=== PATIENT | female | born 1960 | race Two or more races ===

== ENCOUNTER 2021-02-22 14:32 | Emergency (ER) | payer MEDICARE, MEDICAID, SELFPAY ==
[2021-02-22 14:44] VITALS: BP 110/75; PULSE 77; RESP 16; TEMP 36.7; O2SAT 98; BMI 22.3
--- NOTE | 2021-02-22 15:30 | ED.ALLEREA ---
HPI - Allergic Reaction General Chief complaint: Allergic Reaction Stated complaint: EYES SWELLING Time Seen by Provider: 02/22/21 15:01 Source: patient Mode of arrival: ambulatory History of Present Illness HPI narrative: 60-year-old female with a past medical history of arthritis, diabetes, eczema, hypercholesterolemia, hypertension, sinusitis, presenting to the ED complaining of acute on chronic facial rash worsening over the past few days. Admits recently saw night warehouse manager & was prescribed Hydrocortisone cream & Flagyl topical cream which worsened rash, medications were discontinued by Dermatology and patient was instructed to use Vaseline only, however symptoms persisted/continued to worsen. Reports skin burning with mild pruritus/swelling extending to eyelids. Denies visual change/loss, blurry/double vision, fever/chills, tick/insect bites, new exposures/travel MD complaint: facial swelling Related Data Previous Rx's Medication Instructions Recorded cetirizine [Zyrtec] 10 mg PO DAILY PRN #14 cap 02/22/21 diphenhydramine HCl [Benadryl] 25 mg PO Q6H PRN #14 cap 02/22/21 prednisone 40 mg PO DAILY 5 Days #10 tab 02/22/21 Allergies Allergy/AdvReac Type Severity Reaction Status Date / Time latex [Latex] Allergy Mild RASH Verified 02/22/21 14:54 Review of Systems Review of Systems: Constitutional: No Fever, No Chills ENT/Mouth: No Ear Pain, No sore throat, No Rhinorrhea, No Swallowing Difficulty Eyes: +eyelid swelling, No Redness, No Vision Changes Cardiovascular: No Chest Pain, No SOB Respiratory: No Cough, No Dyspnea Musculoskeletal: No joint pain, No Myalgias, No Joint Swelling Skin: No Skin Lesions, + rash Neuro: No Weakness, + Headache Yes all other systems are reviewed and are negative [facility] Past Medical History Attestation statement: The following information was validated with the patient. Medical History (Updated 02/22/21 @ 15:30 by ABRIL Donovan) Arthritis Diabetes Eczema Hypercholesteremia Hypertension Sinusitis Social History Social History Advance Directives: No Advance Directives Information Provided: No Patient : No Physical Exam Vital Signs: Vital Signs: Last Vital Signs Temp 98.1 F 02/22/21 14:44 Pulse 77 02/22/21 14:44 Resp 16 02/22/21 14:44 BP 110/75 02/22/21 14:44 Pulse Ox 98 02/22/21 14:44 Body Mass Index 22.3 Const: General: cooperative, healthy appearing and no acute distress Orientation/consciousness: patient oriented x3 Limitations: no limitations HENMT: Head: Yes normal to inspection and Yes atraumatic Ears: hearing grossly normal bilaterally General nose exam: Normal external nose present Mouth: Normal oral and palatal mucosa present and no muffled voice Throat: Yes posterior oropharynx normal, Yes tonsils normal, Yes uvula midline, No peritonsillar mass, No uvula laterally displaced and No uvular edema Eyes: General: appearance normal, both eyes and all related structures EOM: EOMs intact bilaterally Neck: Neck: Yes normal visual inspection, Yes no lymphadenopathy, Yes no meningeal signs, Yes trachea midline and Yes supple Resp: Effort & Inspection: normal respiratory effort, not labored, no nasal flaring and no stridor Cardio: Rate: regular rate Heart sounds: S1 normal heart sound present and S2 normal heart sound present GI: Inspection: Yes normal to inspection Skin: Other: Rash noted to face bilateral periorbital, nose, bilateral cheeks and upper lip. No intra-articular involvement she Rashes: rashes noted face borders raised, color and surface erythematous, smooth and waxy; not warm; fluctuant not assessed Wounds: no wounds Neuro: General: patient oriented x3 and no meningeal signs Gait exam (Neuro): Normal gait present Extrem: General: Yes normal to inspection MDM - Allergic Reaction MDM Narrative Medical decision making narrative: 60-year-old female with a past medical history of arthritis, diabetes, eczema, hypercholesterolemia, HTN, sinusitis, presenting to the ED c/o acute on chronic facial rash worsening over the past few days. On exam vital signs stable, NAD, well-appearing, physical exam as above. Erythematous raised shiny/waxy rash noted to face. Not warm or tender to palpation. Concern for contact dermatitis versus allergic reaction. Low concern for cellulitis. No appreciable intra-articular involvement. Plan: P.O. steroids Discharge Plan Discharge Clinical Impression: Contact dermatitis Qualifiers: Contact dermatitis type: unspecified Contact dermatitis trigger: unspecified trigger Qualified Code(s): L25.9 - Unspecified contact dermatitis, unspecified cause Patient Disposition: Home, Self-Care Instructions: Contact Dermatitis (ED) Additional Instructions: Continue using Vaseline at home. In addition prednisone as an oral steroid, take as prescribed. Take Zyrtec during the day as it will not make you drowsy, and Benadryl at night as it will make you drowsy. Follow-up with her night warehouse manager. If her symptoms persist or worsen, you have fever, or chills return to the ED Contin?e usando vaselina en casa. Adem?s, la prednisona alysa esteroide oral, t?andrea seg?n lo prescrito. Selman Zyrtec jayant el d?a, ya que no le sarthak? mary ann?o, y Benadryl por la noche, ya que le sarthak? mary ann?o. Seguimiento con mccall dermat?logo. Si marisol s?ntomas persisten o empeoran, tiene fiebre o los escalofr?os regresan al servicio de urgencias Prescriptions: New prednisone 20 mg tablet 40 mg PO DAILY 5 Days Qty: 10 RF: 0 Zyrtec 10 mg capsule 10 mg PO DAILY PRN (Reason: allergy symptoms) Qty: 14 RF: 0 diphenhydramine HCl [Benadryl] 25 mg capsule 25 mg PO Q6H PRN (Reason: allergy symptoms) Qty: 14 RF: 0 Referrals: Tonia Bailey MD [Primary Care Provider] - 2 days Print Language: Kiswahili
[2021-02-22] MEDS: predniSONE 20 MG TABLET 40 MG PO (15:33)
[2021-02-22] MEDS: Famotidine 20 MG TABLET PO (15:33)
[2021-02-22] MEDS: Loratadine 10 MG TABLET PO (15:33)
== END 2021-02-22 15:51 | disposition home or self-care (01) ==
PROVIDERS: Emergency Provider Emergency Medicine Emergency Medical Services; PCP Family Medicine
DX: L25.9 Unspecified contact dermatitis, unspecified cause (principal); R22.0 Localized swelling, mass and lump, head; E11.9 Type 2 diabetes mellitus without complications; I10 Essential (primary) hypertension; E78.00 Pure hypercholesterolemia, unspecified
CPT/HCPCS: 99283; 99284

== ENCOUNTER → 2021-02-25 09:05 | Outpatient (BNVA) | payer MEDICARE, MEDICAID, SELFPAY | PROVIDERS: Visit Provider Advanced Practice Midwife | DX: N95.0 Postmenopausal bleeding (principal); N81.4 Uterovaginal prolapse, unspecified | CPT/HCPCS: 99212 ==

== ENCOUNTER 2021-03-08 06:14 | Emergency (ER) | payer MEDICARE, MEDICAID, SELFPAY ==
[2021-03-08 06:58] VITALS: BP 123/81; PULSE 82; RESP 24; TEMP 37.1; O2SAT 98; BMI 26.6
[2021-03-08 08:00] VITALS: BP 127/79; PULSE 76; RESP 16; O2SAT 99
--- NOTE | 2021-03-08 08:04 | ED.ALLEREA ---
HPI - Allergic Reaction General Chief complaint: Allergic Reaction Stated complaint: Allergic reaction Time Seen by Provider: 03/08/21 08:00 Source: patient, family and EMS Mode of arrival: EMS Limitations: language barrier History of Present Illness HPI narrative: 60 y/o female with history of asthma, diabetes, HTN, recurrent facial rash who presents to the ER with acute onset of burning and itching facial rash that started last night. She reports redness and swelling of her face, eyes, and extending down to her neck. She reports it is painful. She had a similar rash a few weeks ago (seen here on 02/22) and prescribed prednisone with resolution. It was not as severe at that time. She reports dealing with this every year, multiple times per year and it is getting worse in intensity. Documentation from that visit report the rash is acute on chronic and she was seeing a Dermatolgist for this. She denies any tongue to throat swelling. No shortness of breath, wheezing or difficulty breathing. She denies any lotions, creams or sunscreen use. Has only been using Vasoline as recommended by her Chemical Dependency Professional. Next appointment with them is in 2 weeks. MD complaint: allergic reaction, hives and facial swelling Onset (ago): hour(s) (12) Exposure: unknown Symptoms: rash, itching and facial swelling Severity: moderate Treatment prior to arrival: none Previous Allergic Reaction History: prior ED visit(s) Related Data Previous Rx's Medication Instructions Recorded cetirizine [Zyrtec] 10 mg PO DAILY PRN #14 cap 02/22/21 diphenhydramine HCl [Benadryl] 25 mg PO Q6H PRN #14 cap 02/22/21 prednisone 40 mg PO DAILY 5 Days #10 tab 02/22/21 cephalexin 500 mg PO Q6H 7 Days #28 cap 03/08/21 prednisone 50 mg PO DAILY #7 tab 03/08/21 Allergies Allergy/AdvReac Type Severity Reaction Status Date / Time latex [Latex] Allergy Mild RASH Verified 02/22/21 14:54 Review of Systems Review of Systems: Constitutional: No Fever, No Chills ENT/Mouth: No sore throat, No Rhinorrhea, No Swallowing Difficulty Eyes: No Eye Pain, + Swelling, No Redness Cardiovascular: No Chest Pain, No SOB Respiratory: No Cough, No Sputum Gastrointestinal: No Nausea, No Vomiting, No Diarrhea, No abdominal Pain Musculoskeletal: No joint pain, No Myalgias Skin: No Skin Lesions, + rash Neuro: No Weakness, No Numbness, No Dizziness, No Headache Psych: No Anxiety/Panic, No Depression Heme/Lymph: No Bruising, No Lymphadenopathy PMFSH Past Medical History Medical History Arthritis Diabetes Eczema Hypercholesteremia Hypertension Sinusitis Family History Family History Mother No problems noted. Father No problems noted. Social History Social History Alcohol intake: never Patient Tobacco Use Status: Never used Tobacco Advance Directives: No Advance Directives Information Provided: No Patient : No Gender identity: female Physical Exam Vital Signs: Vital Signs: Last Vital Signs Temp 98.8 F 03/08/21 06:58 Pulse 76 03/08/21 08:00 Resp 16 03/08/21 08:00 BP 127/79 03/08/21 08:00 Pulse Ox 99 03/08/21 08:00 Body Mass Index 26.6 Appearance: Alert. Oriented X3. No acute distress. Head/face: mild-moderte swelling and erythema of facial tissue, weeping areas with mild yellow discoloration Eyes: Pupils equal, round and reactive to light. Moderate periorbital edema. ENT: Pharynx normal. No lip, tongue or mouth swelling. normal voice Neck: erythema of anterior neck without swelling or warmth, no masses. Neck supple. CVS: Normal heart rate and rhythm. Pulses normal. Respiratory: No respiratory distress. Breath sounds normal. Abdomen: Soft and nontender. +BS x4 Skin: facial skin is erythematous and edematous, weeping, Extremities: No lower extremity edema. Neuro: Oriented X 3. No motor deficit. No sensory deficit. Course Course Course Narrative: 60 y/o female presenting with recurrent facial and neck rash - burning, itching, red and swollen with unknown trigger. Will give dose of IV solumedrol, IV benadryl and IV pepcid now and re-evaluate. No airway involvement and lungs are clear. Reevaluation(s) Reevaluation #1: Unclear cause of rash but it is slightly improved with above regimen. Weeping and yellowing is slightly worse, concerning for possible developing bacterial infection. Will treat as such with keflex. Her airway remains patent and she is stable for discharge home with outpatient Derm follow up. Will give Rx for prednisone and keflex. Encouraged to continue benadryl and pepcid. Discharge Plan Discharge Clinical Impression: Dermatitis Patient Disposition: Home, Self-Care Instructions: Impetigo (ED), Dermatitis (ED) Additional Instructions: Take the medications as prescribed. Avoid Vasoline for now, it may make the rash worse. Take Benadryl 25-50 mg every 6 hours as needed for itching. Follow up with your Chemical Dependency Professional in 2 weeks as scheduled. If you develop worsening symptoms or swelling of your mouth or throat call 911 or come back to the ER for further evaluation. [place] los medicamentos seg?n lo prescrito. Evite la vasolina por ahora, puede empeorar la erupci?n. [place] Benadryl 25-50 mg cada 6 horas seg?n sea necesario para la picaz?n. Mary un seguimiento con mccall dermat?logo en 2 semanas seg?n lo programado. Si presenta un empeoramiento de los s?ntomas o hinchaz?n de la boca o la garganta, llame al 911 o regrese a la marco de emergencias para michaela evaluaci?n adicional. Prescriptions: New prednisone 50 mg tablet 50 mg PO DAILY Qty: 7 RF: 0 cephalexin 500 mg capsule 500 mg PO Q6H 7 Days Qty: 28 RF: 0 No Action prednisone 20 mg tablet 40 mg PO DAILY 5 Days Qty: 10 RF: 0 Zyrtec 10 mg capsule 10 mg PO DAILY PRN (Reason: allergy symptoms) Qty: 14 RF: 0 diphenhydramine HCl [Benadryl] 25 mg capsule 25 mg PO Q6H PRN (Reason: allergy symptoms) Qty: 14 RF: 0
[2021-03-08] MEDS: methylPREDNISolone Sod Succ 125 MG/2 ML VIAL IVPUSH (08:41)
[2021-03-08] MEDS: diphenhydrAMINE HCL 50 MG/ML VIAL IVPUSH (08:42)
[2021-03-08] MEDS: Famotidine/PF 20 MG/2 ML VIAL IVPUSH (08:42)
--- NOTE | 2021-03-08 09:13 | PC.NURSE ---
PT IS A/O X 3 NO SOB/VANESSA NOTED LUNGS - CTA. SPEAKS IN FULL SENTENCES. FACE/NECK SWOLLEN, RED AND WEEPING CLEAR FLUID. PT C/O 10/10 ITCHING/BURNING. NO ANGIOEDEMA NOTED. MLP AMANADA AWARE.
== END 2021-03-08 11:25 | disposition home or self-care (01) ==
PROVIDERS: Emergency Provider Emergency Medicine Emergency Medical Services; PCP Family Medicine
DX: L30.9 Dermatitis, unspecified (principal); I10 Essential (primary) hypertension; E11.9 Type 2 diabetes mellitus without complications; J45.909 Unspecified asthma, uncomplicated; Z79.52 Long term (current) use of systemic steroids
CPT/HCPCS: 96374; 96375; 99284; J1200; J2930

== ENCOUNTER 2021-03-09 10:24 | Outpatient (REF) | payer MEDICARE, MEDICAID, SELFPAY ==
--- NOTE | ~2021-03-09 | US_ITS ---
EXAMINATION: ULTRASOUND PELVIS AND TRANSVAGINAL CLINICAL INFORMATION: Postmenopausal bleeding COMPARISON: None TECHNIQUE: Transabdominal and transvaginal imaging of pelvis is performed. FINDINGS: The uterus is retroverted measuring 5.8 cm in length, 3.0 cm in AP and 4.1 cm in transverse dimension. The endometrial thickness is 0.4 cm. The uterus is homogeneous in echotexture. Both ovaries are not visualized. There is small amount of free fluid in the pelvis. US/US pelvic and transvaginal IMPRESSION: Retroverted normal uterus. Ovaries are not seen. There is a small amount of free fluid in the pelvis
== END 2021-03-09 10:25 | disposition home or self-care (01) ==
LOC: HO.US 10:24
PROVIDERS: Visit Provider Obstetrics & Gynecology
DX: N95.0 Postmenopausal bleeding (principal)
CPT/HCPCS: 76830; 76856

== ENCOUNTER 2021-03-20 12:45 | Outpatient (REF) | payer MEDICARE, MEDICAID, SELFPAY ==
--- NOTE | ~2021-03-20 | MM_ITS ---
EXAMINATION: MM SCREENING DIGITAL BREAST TOMOSYNTHESIS, BILATERAL CLINICAL INFORMATION: Screening. Asymptomatic. The lifetime risk of breast cancer based on the Tyrer-Cuzick Model is 7.1%. COMPARISON: Mammography: April 12, 2017 and studies dating back to April 05, 2012 TECHNIQUE: Digital breast tomosynthesis is performed in both the craniocaudal and mediolateral oblique views along with computer-aided detection (CAD). Synthesized 2D images are generated from the tomosynthesis. FINDINGS: There are scattered areas of fibroglandular density (ACR BI-RADS breast composition Category b). There are no significant masses, abnormal calcifications, or other abnormalities. MM/MM tomosynthesis screening BI IMPRESSION: There are no significant changes from prior study. ASSESSMENT: BI-RADS 1: Negative RECOMMENDATION: Routine annual mammography screening. This patient's information was entered into a reminder system with a target due date for their next mammogram.
== END 2021-03-20 12:46 | disposition home or self-care (01) ==
LOC: HO.MAMMO 12:45
PROVIDERS: Visit Provider Family Medicine
DX: Z12.31 Encounter for screening mammogram for malignant neoplasm of breast (principal)
CPT/HCPCS: 77063; 77067

== ENCOUNTER → 2021-03-23 08:31 | Outpatient (BNVA) | payer MEDICARE, MEDICAID, SELFPAY | PROVIDERS: PCP Family Medicine; Visit Provider Obstetrics & Gynecology | DX: N81.4 Uterovaginal prolapse, unspecified (principal); N95.0 Postmenopausal bleeding | CPT/HCPCS: 99212 ==

== ENCOUNTER 2021-04-09 10:01 | Outpatient (REF) | payer MEDICARE, MEDICAID, SELFPAY ==
--- NOTE | 2021-04-09 10:04 | EMG_ITS ---
Bilateral median and ulnar motor and sensory studies were performed. Bilateral radial sensory studies were performed and paraspinal muscles were tested. IMPRESSION: 1. 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 2. Mild bilateral ulnar neuropathy across cubital tunnel. MD YUMIKO Chakraborty/CECILIO / [id number] MTDD
== END 2021-04-09 10:02 | disposition home or self-care (01) ==
LOC: HO.NEURO 10:01
PROVIDERS: Visit Provider Family Medicine
DX: R20.0 Anesthesia of skin (principal)
CPT/HCPCS: 95886; 95911

== ENCOUNTER 2021-04-28 08:46 | Outpatient (REF) | payer MEDICARE, MEDICAID, SELFPAY | END 2021-04-28 08:47 | disposition home or self-care (01) | LOC: HO.LAB 08:46 | PROVIDERS: PCP Family Medicine; Visit Provider Obstetrics & Gynecology | DX: R87.612 Low grade squamous intraepithelial lesion on cytologic smear of cervix (LGSIL) (principal) | CPT/HCPCS: 57454; 88305 ==

== ENCOUNTER → 2021-05-12 09:49 | Outpatient (BNVA) | payer MEDICARE, MEDICAID, SELFPAY | PROVIDERS: PCP Family Medicine; Visit Provider Obstetrics & Gynecology | DX: N87.0 Mild cervical dysplasia (principal); N81.4 Uterovaginal prolapse, unspecified | CPT/HCPCS: 57160; 99212 ==

== ENCOUNTER → 2021-05-13 09:48 | Outpatient (BNVA) | payer MEDICARE, MEDICAID, SELFPAY | PROVIDERS: Visit Provider Obstetrics & Gynecology | DX: N81.4 Uterovaginal prolapse, unspecified (principal) | CPT/HCPCS: 99212 ==

== ENCOUNTER → 2021-05-18 08:04 | Outpatient (BNVA) | payer MEDICARE, MEDICAID, SELFPAY | PROVIDERS: Visit Provider Obstetrics & Gynecology | DX: Z46.6 Encounter for fitting and adjustment of urinary device (principal); N81.4 Uterovaginal prolapse, unspecified | CPT/HCPCS: 99212 ==

== ENCOUNTER → 2021-06-03 08:40 | Outpatient (BNVA) | payer MEDICARE, MEDICAID, SELFPAY | PROVIDERS: Visit Provider Orthopaedic Surgery | DX: G56.03 Carpal tunnel syndrome, bilateral upper limbs (principal) | CPT/HCPCS: 99202 ==

== ENCOUNTER 2022-01-19 07:34 | Outpatient (REF) | payer MEDICARE, MEDICAID, SELFPAY ==
--- NOTE | ~2022-01-19 | MM_ITS ---
EXAMINATION: BONE DENSITOMETRY CLINICAL INDICATION: Menopausal state. COMPARISON: Baseline BD dated 06/02/2012. TECHNIQUE: Using a ReCellular DXA System (software version: 13.1) manufactured by [employer], dual-energy x-ray absorptiometry was performed of the lumbar spine and left hip. The images are of good technical quality. Summary results are attached. FINDINGS: AP SPINE L1-L4: Current: BMD 1.119 g/cm2, Z-score 0.9, T-score -0.5, normal, 6.8% decrease from baseline (<5% change is not significant). Baseline: BMD 1.201 g/cm2. LEFT FEMUR, NECK: Current: BMD 0.948 g/cm2, Z-score 0.7, T-score -0.7, normal. Baseline: BMD 1.057 g/cm2. LEFT FEMUR, TOTAL: Current: BMD 1.028 g/cm2, Z-score 1.2, T-score 0.2, normal, 13.5% decrease from baseline (<5% change is not significant). Baseline: BMD 1.189 g/cm2. IDENTIFIED RISK FACTORS: Rheumatoid arthritis, history of fracture (adult), menopause. HISTORY OF FRACTURE: Wrist. MEDICATIONS: None listed. MM/XR DEXA axial skeleton IMPRESSION: 1. DIAGNOSIS: Normal bone density based on the lowest T-score value of -0.7 in the femoral neck applying World Health Organization criteria. 2. 10-YEAR FRACTURE RISK PREDICTION, FRAX: According to the guidelines, FRAX calculation should only be performed on patients in the osteopenia bone density category. Therefore, FRAX was not performed on this patient. 3. Treatment Recommendations: NOF guidelines recommend consideration for treatment in postmenopausal women and men age 50 and older presenting with the following: -A hip or vertebral (clinical or morphometric) fracture. -T-score less than or equal to -2.5 at the femoral neck or spine after appropriate evaluation to exclude secondary causes. -Low bone mass at the hip or spine and a 10-year fracture probability by FRAX of greater than or equal to 3% for hip fracture or greater than or equal to 20% for major osteoporotic fracture based on the [place] adapted WHO algorithm. 4. Other Recommendations: All treatment decisions require clinical judgment and consideration of individual patient factors, including patient preferences, comorbidities, previous drug use, risk factors not captured in the FRAX model (e.g. frailty, falls, vitamin D deficiency, increased bone turnover, interval significant decline in bone density) and possible under or overestimation of fracture risk by FRAX. FUTURE SCAN RECOMMENDATION: People with diagnosed cases of osteoporosis or at high risk for fracture should have regular bone mineral density tests. For patients eligible for Medicare, routine testing is allowed once every 2 years. The testing frequency can be increased to one year for patients who have rapidly progressing disease, those who are receiving or discontinuing medical therapy to restore bone mass, or have additional risk factors.
== END 2022-01-19 07:35 | disposition home or self-care (01) ==
LOC: HO.MAMMO 07:34
PROVIDERS: PCP Family Medicine; Visit Provider Nurse Practitioner
DX: Z13.820 Encounter for screening for osteoporosis (principal); Z78.0 Asymptomatic menopausal state
CPT/HCPCS: 77080

== ENCOUNTER 2022-03-22 11:54 | Outpatient (REF) | payer MEDICARE, MEDICAID, SELFPAY ==
--- NOTE | ~2022-03-22 | MM_ITS ---
EXAMINATION: MM SCREENING DIGITAL BREAST TOMOSYNTHESIS, BILATERAL CLINICAL INFORMATION: Screening. Asymptomatic. The lifetime risk of breast cancer based on the Tyrer-Cuzick Model is 10%. COMPARISON: Mammography: 03/20/2021, 04/12/2017, 10/28/2015. TECHNIQUE: Digital breast tomosynthesis is performed in both the craniocaudal and mediolateral oblique views along with computer-aided detection (CAD). Synthesized 2D images are generated from the tomosynthesis. FINDINGS: There are scattered areas of fibroglandular density (ACR BI-RADS breast composition Category b). Parenchymal pattern is similar to prior exams. No developing density or architectural abnormality. No abnormal calcifications. The axilla and skin contours are similar to prior exams. Again, there is a large dermal lesion overlying the anterior left axilla. No significant changes. MM/MM tomosynthesis screening BI IMPRESSION: No mammographic evidence of malignancy. ASSESSMENT: BI-RADS 2: Benign RECOMMENDATION: Routine annual mammography screening. This patient's information was entered into a reminder system with a target due date for their next mammogram.
== END 2022-03-22 11:55 | disposition home or self-care (01) ==
LOC: HO.MAMMO 11:54
PROVIDERS: PCP Nurse Practitioner; Visit Provider Nurse Practitioner
DX: Z12.31 Encounter for screening mammogram for malignant neoplasm of breast (principal)
CPT/HCPCS: 77063; 77067

== ENCOUNTER 2022-03-28 11:56 | Emergency (ER) | payer MEDICARE, MEDICAID, SELFPAY ==
[2022-03-28 12:54] VITALS: BP 138/77; PULSE 74; RESP 17; TEMP 36.2; O2SAT 99; BMI 27.4
--- NOTE | 2022-03-28 16:32 | ED.EYEPROB ---
HPI - Eye Problem General Chief complaint: Eye Problems Stated complaint: Swollen L eye Time Seen by Provider: 03/28/22 15:32 History of Present Illness HPI Narrative: Patient complains of left upper eyelid redness with a small pustule and some discomfort and redness of the skin around the upper lid, denies any vision changes or vision loss, denies any discharge denies any pain to the eye itself Related Data Home Medications Medication Instructions Recorded Confirmed estradiol 1 g vaginal 2XW 06/03/21 metformin 500 mg tablet,extended 1,000 mg PO BID 06/03/21 release 24 hr Previous Rx's Medication Instructions Recorded cetirizine 10 mg capsule (Zyrtec) 10 mg PO DAILY PRN allergy 02/22/21 symptoms #14 caps diphenhydramine HCl 25 mg capsule 25 mg PO Q6H PRN allergy symptoms 02/22/21 (Benadryl) #14 caps prednisone 20 mg tablet 40 mg PO DAILY 5 days #10 tabs 02/22/21 cephalexin 500 mg capsule 500 mg PO Q6H 7 days #28 caps 03/08/21 prednisone 50 mg tablet 50 mg PO DAILY #7 tabs 03/08/21 cephalexin 500 mg tablet 500 mg PO QID 7 days #28 tabs 03/28/22 erythromycin 5 mg/gram (0.5 %) eye 0.5 inch ophthalmic (eye) TID 5 03/28/22 ointment days #3.5 grams Allergies Allergy/AdvReac Type Severity Reaction Status Date / Time latex [Latex] Allergy Mild RASH Verified 03/28/22 12:54 Review of Systems Review of Systems: Positive for Redness and swelling of eyelid and skin of around upper lid Negatives are no fever no chills no dizziness no weakness no headache no confusion no vision loss no photophobia no discharge from eye no pain with eye movement no sinus pain or congestion no sore throat no neck pain no chest pain no abdominal pain no nausea vomiting no other skin rash Yes all other systems are reviewed and are negative [facility] Past Medical History Source: nursing notes reviewed Medical History Arthritis Diabetes Eczema Hypercholesteremia Hypertension Sinusitis Family History Family History Mother No problems noted. Father No problems noted. Social History Social History Alcohol intake: never Patient Tobacco Use Status: Never used Tobacco Advance Directives: No Advance Directives Information Provided: Yes Gender identity: Female Physical Exam Vital Signs: Vital Signs: Last Vital Signs Temp 97.1 F 03/28/22 12:54 Pulse 74 03/28/22 12:54 Resp 17 03/28/22 12:54 BP 138/77 03/28/22 12:54 Pulse Ox 99 03/28/22 12:54 O2 Del Method 03/28/22 12:54 BMI result Body Mass Index 27.4 General appearance is no acute distress exam visual acuity is checked and is 20 30 right eye 20 50 left eye, pupils equal round reactive light extraocular motions are fully intact, no pain with extraocular movements, there is a small pustule in the upper lid and the upper lid is red and swollen, there is some redness warmth and tenderness just above the eyebrow and slightly lateral to the upper lid, there is no lower lid swelling or edema, the conjunctivae are not injected there is no exudate, there is no photophobia Pharynx is clear Neck is supple Respiratory no distress Extremities full range of motion x4 Course Course Course Narrative: Case was discussed with attending physician Mo who came to see the patient Using an [address] Hassan did superficial needle aspiration of the pustule on the upper lid with discharge of some pus He agreed blessed plan is antibiotic ointment placed under the upper lid and antibiotic which was started here in the ER Patient does have an appointment with the eye doctor in 2 days on Tuesday so will follow with the eye doctor Discharge Plan Discharge Clinical Impression: Hordeolum, Cellulitis Patient Disposition: Home, Self-Care Additional Instructions: You likely have an infected upper eyelid stye as well as some skin infection of the upper lid and the surrounding skin so we are treating with both antibiotic and antibiotic ointment Follow as scheduled with her eye doctor on Tuesday in 2 days Return to the ER any time for vision loss, eye pain, any worse condition or any concerns Prescriptions: New cephalexin 500 mg tablet 500 mg PO QID 7 Days Qty: 28 0RF erythromycin 5 mg/gram (0.5 %) ointment 0.5 inch ophthalmic (eye) TID 5 Days Qty: 3.5 0RF No Action prednisone 50 mg tablet 50 mg PO DAILY Qty: 7 0RF cephalexin 500 mg capsule 500 mg PO Q6H 7 Days Qty: 28 0RF prednisone 20 mg tablet 40 mg PO DAILY 5 Days Qty: 10 0RF Zyrtec 10 mg capsule 10 mg PO DAILY PRN (Reason: allergy symptoms) Qty: 14 0RF diphenhydramine HCl [Benadryl] 25 mg capsule 25 mg PO Q6H PRN (Reason: allergy symptoms) Qty: 14 0RF Referrals: Riki Smith [Physician] - (Left eye stye)
[2022-03-28] MEDS: Acetaminophen 325 MG TABLET 975 MG PO (16:44)
[2022-03-28] MEDS: cephALEXin 500 MG CAPSULE PO (16:44)
[2022-03-28] MEDS: Erythromycin Base 0.5% Oph Oin 1 GM TUBE 1 CM EYE-RIGHT (16:44)
== END 2022-03-28 16:50 | disposition home or self-care (01) ==
PROVIDERS: Emergency Provider Emergency Medicine; PCP Nurse Practitioner
DX: H00.014 Hordeolum externum left upper eyelid (principal); Z79.899 Other long term (current) drug therapy
CPT/HCPCS: 99283; 99284

== ENCOUNTER 2022-10-28 09:41 | Emergency (ER) | payer MEDICARE, MEDICAID, SELFPAY ==
[2022-10-28 10:43] VITALS: BP 120/68; PULSE 90; RESP 18; TEMP 36.6; O2SAT 97; BMI 25.6
[2022-10-28 12:22] LABS: COVID-19 Test Positive (Negative); IDNOW Serial# BCCEAD1C
--- NOTE | 2022-10-28 12:36 | ED.GENADULT ---
HPI - General Adult General Chief complaint: Upper Respiratory Symptoms <ABRIL Kamara - Last Filed: 10/28/22 12:41> Stated complaint: headache, not feeling well <ABRIL Kamara - Last Filed: 10/28/22 12:41> Time Seen by Provider: 10/28/22 12:36 <ABRIL Kamara - Last Filed: 10/28/22 12:41> Source: patient, family and old records reviewed <ABRIL Kamara - Last Filed: 10/28/22 12:41> Mode of arrival: ambulatory <ABRIL Kamara - Last Filed: 10/28/22 12:41> Limitations: no limitations <ABRIL Kamara - Last Filed: 10/28/22 12:41> History of Present Illness HPI narrative: 62-year-old female presents to the ER for evaluation of headache and mild cough for the last 4 days. She is here requesting a COVID test. She is otherwise feeling okay. She has been eating and drinking normally. She denies any respiratory distress or difficulty breathing. She is vaccinated for COVID. <ABRIL Kamara - Last Filed: 10/28/22 12:41> MD complaint: Headache and cough <ABRIL Kamara - Last Filed: 10/28/22 12:41> Onset (ago): day(s) (4) <ABRIL Kamara - Last Filed: 10/28/22 12:41> Location: chest <ABRIL Kamara - Last Filed: 10/28/22 12:41> Radiation: non-radiation <ABRIL Kamara - Last Filed: 10/28/22 12:41> Severity: mild <ABRIL Kamara - Last Filed: 10/28/22 12:41> Quality: aching <ABRIL Kamara - Last Filed: 10/28/22 12:41> Pain Consistency: intermittent <ABRIL Kamara - Last Filed: 10/28/22 12:41> Relieving factors: none <ABRIL Kamara Last Filed: 10/28/22 12:41> Exacerbating factors: none <ABRIL Kamara - Last Filed: 10/28/22 12:41> Associated symptoms: cough, headaches, malaise and weakness <ABRIL Kamara - Last Filed: 10/28/22 12:41> Treatments prior to arrival: none <ABRIL Kamara - Last Filed: 10/28/22 12:41> Related Data Home medications: Home Medications Medication Instructions Recorded Confirmed estradiol 0.01% (0.1 mg/gram) 1 g vaginal 2XW 06/03/21 vaginal cream metformin 500 mg tablet,extended 1,000 mg PO BID 06/03/21 release 24 hr Previous Rx's Medication Instructions Recorded cetirizine 10 mg capsule (Zyrtec) 10 mg PO DAILY PRN allergy 02/22/21 symptoms #14 caps diphenhydramine HCl 25 mg capsule 25 mg PO Q6H PRN allergy symptoms 02/22/21 (Benadryl) #14 caps prednisone 20 mg tablet 40 mg PO DAILY 5 days #10 tabs 02/22/21 cephalexin 500 mg capsule 500 mg PO Q6H 7 days #28 caps 03/08/21 prednisone 50 mg tablet 50 mg PO DAILY #7 tabs 03/08/21 acetaminophen 500 mg tablet 1,000 mg PO QID PRN pain #30 tabs 03/28/22 cephalexin 500 mg tablet 500 mg PO QID 7 days #28 tabs 03/28/22 erythromycin 5 mg/gram (0.5 %) eye 0.5 inch ophthalmic (eye) TID 5 03/28/22 ointment days #3.5 grams <ABRIL Kamara - Last Filed: 10/28/22 12:41> Allergies/adverse reactions: Allergies Allergy/AdvReac Type Severity Reaction Status Date / Time latex [Latex] Allergy Mild RASH Verified 03/28/22 12:54 <ABRIL Kamara - Last Filed: 10/28/22 12:41> Review of Systems Review of Systems: Yes all other systems are reviewed and are negative <ABRIL Kamara - Last Filed: 10/28/22 12:41> [facility] Past Medical History Medical History: Medical History Arthritis Diabetes Eczema Hypercholesteremia Hypertension Sinusitis <ABRIL Kamara - Last Filed: 10/28/22 12:41> Family History Family History: Family History Mother No problems noted. Father No problems noted. <ABRIL Kamara - Last Filed: 10/28/22 12:41> Social History Social History: Social History Alcohol intake: never Patient Tobacco Use Status: Never used Tobacco Advance Directives: No Gender identity: Female <ABRIL Kamara - Last Filed: 10/28/22 12:41> Physical Exam ED Vital Signs: Vital Signs - 24 hr 10/28/22 10:43 Temperature 97.8 F Pulse Rate 90 Respiratory Rate 18 Blood Pressure 120/68 Pulse Oximetry 97 Oxygen Delivery Method Room Air BMI result Body Mass Index 25.6 <ABRIL Kamara - Last Filed: 10/28/22 12:41> Vital Signs - 24 hr 10/28/22 10:43 Temperature 97.8 F Pulse Rate 90 Respiratory Rate 18 Blood Pressure 120/68 Pulse Oximetry 97 Oxygen Delivery Method Room Air BMI result Body Mass Index 25.6 <Primo Stubbs MD - Last Filed: 11/01/22 11:43> Appearance: Alert. Oriented X3. No acute distress. HEENT: normal inspection CVS: Normal heart rate and rhythm. Pulses normal. Respiratory: No respiratory distress. Lungs are clear throughout. Skin: Skin warm and dry. Normal skin color. Normal skin turgor. No rashes. Extremities: Normal inspection x4. Neuro: Oriented X 3. Grossly normal, nonfocal, steady gait. <ABRIL Kamara - Last Filed: 10/28/22 12:41> Course Course Course Narrative: 62-year-old female presents to the ER for evaluation of headache and mild cough for the last 4 days. She is requesting a COVID test. Her vital signs are stable. Her lungs are clear. She has found be COVID positive. complaint coordinator used to discuss diagnosis and management. We discussed return precautions. She is stable for discharge home. <ABRIL Kamara - Last Filed: 10/28/22 12:41> Medical Decision Making Differential Diagnosis Differential Diagnoses: The differential diagnosis associated with the presentation includes <ABRIL Kamara - Last Filed: 10/28/22 12:41> COVID, flu, viral syndrome, pneumonia, migraine, tension headache, cluster headache <ABRIL Kamara - Last Filed: 10/28/22 12:41> Lab Data MDM Lab Attestation statement: I reviewed the patient's lab results. <ABRIL Kamara - Last Filed: 10/28/22 12:41> COVID positive <ABRIL Kamara - Last Filed: 10/28/22 12:41> Labs: Lab Results 10/28/22 Range/Units 11:59 COVID-19 (REE) Positive A (Negative) COVID-19 Clin Com See Note <ABRIL Kamara - Last Filed: 10/28/22 12:41> Lab Results 10/28/22 Range/Units 11:59 COVID-19 (REE) Positive A (Negative) COVID-19 Clin Com See Note <Primo Stubbs MD - Last Filed: 11/01/22 11:43> External Record Review External record reviewed: Outpatient record, Prior outpatient labs and Prior outpatient radiology <ABRIL Kamara - Last Filed: 10/28/22 12:41> Tests considered The following testing was considered but not selected: Chest x-ray considered, not performed. Saturate 97% on room air, lungs are clear. <ABRIL Kamara - Last Filed: 10/28/22 12:41> Prescription Management I considered prescription management with: Antiviral <ABRIL Kamara - Last Filed: 10/28/22 12:41> Four days into her symptoms, no role for oral antiviral. <ABRIL Kamara - Last Filed: 10/28/22 12:41> Attestation Attending Attestation: I reviewed EARLY CHILDHOOD SERVICES COORDINATOR/PA/Resident note, assessment and plan. I agree with the documentation, assessment and plan unless otherwise stated. <Primo Stubbs MD - Last Filed: 11/01/22 11:43> Critical Care Time Critical Care Time Critical Care Time: No <ABRIL Kamara - Last Filed: 10/28/22 12:41> Discharge Plan Discharge Clinical Impression: COVID-19 <ABRIL Kamara - Last Filed: 10/28/22 12:41> Patient Disposition: Home, Self-Care <ABRIL Kamara - Last Filed: 10/28/22 12:41> Instructions: Covid-19 Viral Syndrome and Novel Coronavirus (ED) Hey/Ath <ABRIL Kamara - Last Filed: 10/28/22 12:41> Additional Instructions: You were found to be COVID-19 POSITIVE today. Your oxygen levels were normal. Rest. Drink plenty of fluids. Do not go out in public while you are not feeling well Take over the counter cold/flu medications as needed for your symptoms. Take Tylenol and/or Motrin as needed for fevers and body aches. Follow up with your doctor this week. If you shortness of breath worsens , if you develop difficulty breathing or any other concerning symptom come back to the ER for further evaluation. Se encontr? que usted es COVID-19 POSITIVO hoy. Daksha niveles de ox?tyrell liat normales. Emmett. Beber mucho l?quido. No salgas en p?blico mientras no te sientas humphrey. [place] medicamentos de venta laura para el resfriado o la gripe seg?n sea necesario para daksha s?ntomas. [place] Tylenol y/o Motrin seg?n sea necesario para la fiebre y los vida corporales. Mary un seguimiento con mccall m?dico esta semana. Si mccall dificultad para respirar empeora, si desarrolla dificultad para respirar o cualquier otro s?ntoma preocupante, regrese a la marco de emergencias para michaela evaluaci?n adicional. <ABRIL Kamara - Last Filed: 10/28/22 12:41> Prescriptions: No Action prednisone 50 mg tablet 50 mg PO DAILY Qty: 7 0RF cephalexin 500 mg capsule 500 mg PO Q6H 7 Days Qty: 28 0RF prednisone 20 mg tablet 40 mg PO DAILY 5 Days Qty: 10 0RF Zyrtec 10 mg capsule 10 mg PO DAILY PRN (Reason: allergy symptoms) Qty: 14 0RF diphenhydramine HCl [Benadryl] 25 mg capsule 25 mg PO Q6H PRN (Reason: allergy symptoms) Qty: 14 0RF cephalexin 500 mg tablet 500 mg PO QID 7 Days Qty: 28 0RF erythromycin 5 mg/gram (0.5 %) ointment 0.5 inch ophthalmic (eye) TID 5 Days Qty: 3.5 0RF acetaminophen 500 mg tablet 1,000 mg PO QID PRN (Reason: pain) Qty: 30 0RF <ABRIL Kamara - Last Filed: 10/28/22 12:41> Interventions: ED Discharge Assessment Last Done: 10/28/22 12:39 <ABRIL Kamara - Last Filed: 10/28/22 12:41> Discharge Date/Time: 10/28/22 12:39 <ABRIL Kamara - Last Filed: 10/28/22 12:41> Print Language: Croatian <ABRIL Kamara - Last Filed: 10/28/22 12:41>
== END 2022-10-28 12:39 | disposition home or self-care (01) ==
PROVIDERS: Emergency Provider Emergency Medicine; PCP Nurse Practitioner
DX: U07.1 COVID-19 (principal); R51.9 Headache, unspecified
CPT/HCPCS: 87635; 99282; 99283

== ENCOUNTER 2023-04-22 15:53 | Outpatient (REF) | payer MEDICARE, MEDICAID, SELFPAY ==
--- NOTE | ~2023-04-22 | MM_ITS ---
EXAMINATION: MM SCREENING DIGITAL BREAST TOMOSYNTHESIS, BILATERAL CLINICAL INFORMATION: Screening. Asymptomatic. The lifetime risk of breast cancer based on the Tyrer-Cuzick Model is 7.6%. COMPARISON: Mammography: This study is compared with prior exams dating back to 2017. TECHNIQUE: Digital breast tomosynthesis is performed in both the craniocaudal and mediolateral oblique views along with computer-aided detection (CAD). Synthesized 2D images are generated from the tomosynthesis. FINDINGS: There are scattered areas of fibroglandular density (ACR BI-RADS breast composition Category b). There are no significant masses, abnormal calcifications, or other abnormalities. MM/MM tomosynthesis screening BI IMPRESSION: No mammographic evidence of malignancy. ASSESSMENT: BI-RADS BI-RADS 1 - Negative RECOMMENDATION: Routine annual mammography screening. 1 year F/U This examination should not preclude the clinical evaluation of a suspicious palpable abnormality. This patient's information was entered into a reminder system with a target due date for their next mammogram.
== END 2023-04-22 15:54 | disposition home or self-care (01) ==
LOC: HO.MAMMO 15:53
PROVIDERS: PCP Family Medicine; Visit Provider Family Medicine
DX: Z12.31 Encounter for screening mammogram for malignant neoplasm of breast (principal)
CPT/HCPCS: 77063; 77067

== ENCOUNTER → 2023-04-22 16:15 | Outpatient (BNV) | payer MEDICARE, MEDICAID, SELFPAY | PROVIDERS: PCP Family Medicine; Visit Provider Radiology Diagnostic Radiology | DX: Z12.31 Encounter for screening mammogram for malignant neoplasm of breast (principal) | CPT/HCPCS: 77063; 77067 ==

== ENCOUNTER 2023-08-26 14:04 | Outpatient (REF) | payer MEDICARE, SELFPAY ==
[2023-08-26 16:45] LABS: Cholesterol 180 mg/dL (<200); Creatinine Urine 71.65 mg/dL; HDL Cholesterol 53 mg/dL (>40); LDL Cholesterol Calculated 72 mg/dL (<100); Microalbum/Creatinine Ratio Ur 11.1 ug/mg cr (<30); Triglycerides 275 mg/dL (<150)
== END 2023-08-26 14:05 | disposition home or self-care (01) ==
LOC: HO.HHCL 14:04
PROVIDERS: Visit Provider General Practice
DX: E11.42 Type 2 diabetes mellitus with diabetic polyneuropathy (principal)
CPT/HCPCS: 36415; 80061; 82043; 82570

== ENCOUNTER 2024-08-24 11:27 | Emergency (ER) | payer MEDICARE, SELFPAY ==
--- NOTE | ~2024-08-24 | XR_ITS ---
EXAMINATION: XR CHEST CLINICAL INFORMATION: CP, SOB COMPARISON: X-ray report 10/22/2015. TECHNIQUE: 2 views of the chest were obtained. FINDINGS: No significant abnormality is noted involving the heart, lungs, mediastinum, bony thorax or soft tissues. XR/XR chest 2V IMPRESSION: Unremarkable examination. Electronically signed by: Bay Connor MD 08/24/2024 02:31 PM [facility]
[2024-08-24 11:53] VITALS: BP 104/64; PULSE 89; RESP 16; TEMP 36.8; O2SAT 98; BMI 25.6
--- NOTE | 2024-08-24 11:54 | ED.GENADULT ---
HPI - General Adult General Chief complaint: Upper Respiratory Symptoms Stated complaint: headaches body aches Time Seen by Provider: 08/24/24 15:45 Source: patient Mode of arrival: ambulatory Limitations: no limitations History of Present Illness ED Provider: Ishan Parkinson PA-C HPI narrative: 63-year-old female history of asthma presents to ED for coughing, shortness of breath, coughing yellow phlegm, body aches and chills and headache since Tuesday. Patient denies any leg swelling, pitting edema, calf pain, pleurisy, or shortness of breath. Related Data Home Medications ?Medication ?Instructions ?Recorded ?Confirmed estradiol 0.01% (0.1 mg/gram) 1 g vaginal 2XW 06/03/21 vaginal cream metformin 500 mg tablet,extended 1,000 mg PO BID 06/03/21 release 24 hr Previous Rx's ?Medication ?Instructions ?Recorded cetirizine 10 mg capsule (Zyrtec) 10 mg PO DAILY PRN allergy 02/22/21 symptoms #14 caps diphenhydramine HCl 25 mg capsule 25 mg PO Q6H PRN allergy symptoms 02/22/21 (Benadryl) #14 caps prednisone 20 mg tablet 40 mg (2 x 20 mg) PO DAILY 5 days 02/22/21 #10 tabs cephalexin 500 mg capsule 500 mg PO Q6H 7 days #28 caps 03/08/21 prednisone 50 mg tablet 50 mg PO DAILY #7 tabs 03/08/21 acetaminophen 500 mg tablet 1,000 mg (2 x 500 mg) PO QID PRN 03/28/22 pain #30 tabs cephalexin 500 mg tablet 500 mg PO QID 7 days #28 tabs 03/28/22 erythromycin 5 mg/gram (0.5 %) eye 0.5 inch ophthalmic (eye) TID 5 03/28/22 ointment days #3.5 grams albuterol sulfate 90 mcg/actuation 2 puff inhalation Q4-6H PRN 08/24/24 aerosol inhaler shortness of breath or wheezing #8.5 grams azithromycin 250 mg tablet See Rx Instructions PO .COMPLEX #6 08/24/24 tabs prednisone 20 mg tablet 40 mg (2 x 20 mg) PO DAILY 5 days 08/24/24 #10 tabs Allergies Allergy/AdvReac Type Severity Reaction Status Date / Time latex [Latex] Allergy Mild RASH Verified 08/24/24 11:58 Review of Systems Review of Systems: coughing, headache, body aches Yes all other systems are reviewed and are negative [facility] Past Medical History Medical History Arthritis Diabetes Eczema Hypercholesteremia Hypertension Sinusitis Family History Family History Mother No problems noted. Father No problems noted. Social History Social History Alcohol intake: never Patient Tobacco Use Status: Never used Tobacco Smoked in Last 30 Days: No Use of substances other than those prescribed or required for medical reasons: No Advance Directives: No Advance Directives Information Provided: No Do you have a plan to hurt others: No Plan Patient : No Gender identity: Female Physical Exam ED Vital Signs: Vital Signs - 24 hr 08/24/24 20:25 08/24/24 20:34 Temperature 97.9 F 97.9 F Pulse Rate 76 76 Respiratory Rate 16 16 Blood Pressure 105/70 105/70 Pulse Oximetry 99 99 Oxygen Delivery Method Room Air Room Air BMI result Body Mass Index 25.6 Const General: cooperative, healthy appearing, comfortable, no acute distress, well developed, alert, awake and Physically active Orientation/consciousness: patient oriented x3 HENMT Head: Yes normal to inspection, Yes No palpable skull fracture present, Yes normocephalic and Yes atraumatic Ears: hearing grossly normal bilaterally, external ears normal, TM's normal bilaterally, TM normal on the right, TM normal on the left, EAC's normal, mastoids normal and no periauricular adenopathy Throat: Yes posterior oropharynx normal, Yes tonsils normal and Yes uvula midline Eyes General: appearance normal, both eyes and all related structures Neck Neck: Yes normal visual inspection, Yes full ROM, Yes no lymphadenopathy, Yes no meningeal signs, Yes trachea midline, Yes supple, No anterior neck swelling and No tender Chest Chest palpation & inspection: normal inspection of the chest and normal palpation of entire chest wall Resp Effort & Inspection: normal respiratory effort and able to speak in complete sentences Auscultation: wheezes expiratory wheezes (slight) Cardio Jugular venous distension: no JVD Heart sounds: S1 normal heart sound present and S2 normal heart sound present General: Yes no CVA tenderness Back/Spine/Pelvis Back: no CVA tenderness and No back tenderness Skin General skin exam: no rashes or lesions noted, elasticity normal and turgor normal Neuro General: patient oriented x3, gait normal, tone normal, moves all extremities, no meningeal signs, no focal motor deficits, CN's II-XI intact bilaterally and normal sensation to monofilament Cranial nerves: Yes CN's II-XII intact bilaterally Extrem Other: bilateral lower extremity negative for swelling, pitting edema, calf tenderness General: Yes normal to inspection, Yes full ROM and Yes capillary refill normal Psych Appearance: grossly normal, well kempt and not disheveled Course Course Course Narrative: This is an RME: Additional HPI, ROS, PE not included below will be deferred to primary provider. RME assessment and note performed by: Dorita Berger PA-C This is a [id number]-female, with a hx of diabetes, eczema, HTN, who presents to the ER with complaints of body aches, headaches, cough, congestion x 6 days. Reports chills. Reports CP with cough Plan: Labs, EKG, CXR, viral swabs, further ER eval needed Medications Administered Discontinued Medications Generic Name Dose Route Start Last Admin Trade Name Freq PRN Reason Stop Dose Admin Magnesium Oxide 800 mg 08/24/24 17:22 08/24/24 17:34 Magnesium Oxide 400 Mg Tablet PO 08/24/24 17:23 800 mg ONCE ONE Administration Prednisone 40 mg 08/24/24 20:24 08/24/24 20:28 Prednisone 20 Mg Tablet PO 08/24/24 20:25 40 mg ONCE ONE Administration Medical Decision Making Medical Decision Making [facility] Narrative: 63-year-old female history of asthma presents to ED for URI symptoms. EKG negative STEMI. Two troponins negative. Chest x-ray negative for pneumonia, fluid overload, CHF. Not suspecting PE.Patient will be treated as asthma bronchitis exacerbation. Patient explained worrisome Differential Diagnosis Differential Diagnoses: The differential diagnosis associated with the presentation includes ( informed return to the ED immedi) Admission/Observation Consideration of admission/observation: Escalation of care including admission/observation considered ( Asthma asthma, bronchitis) Lab Data [facility] Lab Attestation statement: I reviewed the patient's lab results. 08/24/24 13:14 08/24/24 13:14 Labs: Lab Results 08/24/24 08/24/24 Range/Units 13:14 18:18 WBC 7.5 (4.8-10.8) X10*3/uL RBC 4.02 L (4.20-5.50) X10*6/uL Hgb 12.2 (12.0-16.0) g/dl Hct 36.7 L (37.0-47.0) % MCV 91.3 (80.0-98.0) fL MCH 30.3 (27.0-33.0) pg MCHC 33.2 (31.0-35.0) g/dl RDW 12.3 (11.0-16.0) % Plt Count 215 (160-400) X10*3/uL MPV 9.7 (9.4-12.3) fL Immature Gran % (Auto) 0.3 (0.0-0.4) % Neut % (Auto) 54.7 (45-73) % Lymph % (Auto) 30.2 (20-40) % Williamson % (Auto) 7.9 (2-11) % Eos % (Auto) 6.6 H (0-4) % Baso % (Auto) 0.3 (0-2) % Lymph # (Auto) 2.3 (1.2-4.9) X10*3/uL Williamson # (Auto) 0.6 (0.1-1.2) X10*3/uL Eos # (Auto) 0.5 H (0.0-0.4) X10*3/uL Baso # (Auto) 0.0 (0.0-0.2) X10*3/uL Abs Immat Gran (auto) 0.02 (0.00-0.03) X10*3/uL Absolute Neuts (auto) 4.1 (2.0-8.3) x10*3/uL Absolute Nucleated RBC 0.000 (0.0-0.012) X10*3/uL Nucleated RBC % (auto) 0.0 (0.0-0.2) /100WBC Sodium 139 (135-145) mmol/L Potassium 3.5 (3.3-5.1) mmol/L Chloride 101 (96-108) mmol/L Carbon Dioxide 24 (22-29) mmol/L Anion Gap 18 (12-20) BUN 14 (9-16) mg/dL Creatinine 0.86 (0.5-1.4) mg/dL Estim Creat Clear Calc 57.8 Estimated GFR > 60 Random Glucose 106 (60-115) mg/dL Calcium 9.8 (8.4-10.2) mg/dL Magnesium 1.4 L* (1.6-2.6) mg/dL Total Bilirubin 0.4 (0.0-1.0) mg/dL Direct Bilirubin 0.1 (0.0-0.5) mg/dL AST 19 (5-31) U/L ALT 10 (0-31) U/L Alkaline Phosphatase 68 (39-117) U/L Troponin I High Sens < 2.7 < 2.7 (<3.5-17.0) ng/L Total Protein 7.3 (6.5-8.0) g/dL Albumin 4.0 (3.5-5.0) g/dL Influenza Type A (PCR) NEGATIVE (Negative) Influenza Type B (PCR) NEGATIVE (Negative) RSV RNA Qual (PCR) NEGATIVE (Negative) SARS-CoV-2 RNA (RT-PCR) NEGATIVE (Negative) Independent Interpretation I performed an independent interpretation of an: EKG ( EKG negative STEMI) and Plain X-Ray Radiology Impression Discussion of test interpretation with radiology: I have reviewed the radiologist's reading. Independent Historian Clinical information obtained from an independent historian. History obtained from or confirmed by: Other ( patient) External Record Review External record reviewed: Other ( prior visits) Prescription Management I considered prescription management with: Antibiotic Discharge Plan Discharge Clinical Impression: Bronchitis Patient Disposition: Home, Self-Care Instructions: Acute Bronchitis (ED) Additional Instructions: recommend follow-up with your primary care provider. You will be discharged with antibiotics, steroids, and albuterol inhaler. Return to the ED immediately for any chest pain, shortness of breath, coughing up blood, calf pain, leg swelling, fever, chills, chest pain inspiration, abdominal pain, sore throat, drooling, change in voice, or any other concerning symptoms. Prescriptions: New azithromycin 250 mg tablet See Rx Instructions .ROUTE .COMPLEX Qty: 6 0RF Rx Instructions: For 250 mg dose pack: take 500 mg today (day 1), then 250 mg for 4 days (days 2-5) prednisone 20 mg tablet 40 mg PO DAILY 5 Days Qty: 10 0RF albuterol sulfate 90 mcg/actuation HFA aerosol inhaler 2 puff inhalation Q4-6H PRN (Reason: shortness of breath or wheezing) Qty: 8.5 0RF No Action prednisone 50 mg tablet 50 mg PO DAILY Qty: 7 0RF cephalexin 500 mg capsule 500 mg PO Q6H 7 Days Qty: 28 0RF prednisone 20 mg tablet 40 mg PO DAILY 5 Days Qty: 10 0RF Zyrtec 10 mg capsule 10 mg PO DAILY PRN (Reason: allergy symptoms) Qty: 14 0RF diphenhydramine HCl [Benadryl] 25 mg capsule 25 mg PO Q6H PRN (Reason: allergy symptoms) Qty: 14 0RF cephalexin 500 mg tablet 500 mg PO QID 7 Days Qty: 28 0RF erythromycin 5 mg/gram (0.5 %) ointment 0.5 inch ophthalmic (eye) TID 5 Days Qty: 3.5 0RF acetaminophen 500 mg tablet 1,000 mg PO QID PRN (Reason: pain) Qty: 30 0RF Stand Alone Forms: Work/School Release Interventions: ED Discharge Assessment Last Done: 08/24/24 20:34 Discharge Date/Time: 08/24/24 20:36 Print Language: [place] Leonean
--- NOTE | 2024-08-24 11:58 | ECG_ITS ---
Test Reason : SOB Blood Pressure : / mmHG Vent. Rate : 071 BPM Atrial Rate : 071 BPM P-R Int : 134 ms QRS Dur : 082 ms QT Int : 366 ms P-R-T Axes : 034 -08 026 degrees QTc Int : 397 ms Normal sinus rhythm Normal ECG When compared with ECG of 13-FEB-2014 15:15, Vent. rate has decreased BY 35 BPM QT has shortened Referred By: Dorita Berger Electronically Signed By:BRYN RESENDEZ
[2024-08-24 13:20] LABS: MANUAL DIFF FLAG NO
[2024-08-24 13:21] LABS: Basophils Percent Auto 0.3 % (0-2); Eosinophils Absolute Auto 0.5 X10*3/uL (0.0-0.4); Eosinophils Percent Auto 6.6 % (0-4); Hematocrit 36.7 % (37.0-47.0); Hemoglobin 12.2 g/dl (12.0-16.0); Imm Gran Abs Auto 0.02 X10*3/uL (0.00-0.03); Imm Gran Pct Auto 0.3 % (0.0-0.4); Lymphocytes Absolute Auto 2.3 X10*3/uL (1.2-4.9); Lymphocytes Percent Auto 30.2 % (20-40); Mean Corpuscular HGB Conc 33.2 g/dl (31.0-35.0); Mean Corpuscular Hemoglobin 30.3 pg (27.0-33.0); Mean Corpuscular Volume 91.3 fL (80.0-98.0); Mean Platelet Volume 9.7 fL (9.4-12.3); Monocytes Absolute Auto 0.6 X10*3/uL (0.1-1.2); Monocytes Percent Auto 7.9 % (2-11); Neutrophils Absolute Auto 4.1 x10*3/uL (2.0-8.3); Neutrophils Percent Auto 54.7 % (45-73); Platelet Count 215 X10*3/uL (160-400); Red Blood Count 4.02 X10*6/uL (4.20-5.50); Red Cell Distribution Width 12.3 % (11.0-16.0); White Blood Count 7.5 X10*3/uL (4.8-10.8)
[2024-08-24 13:41] LABS: Alanine Aminotransferase 10 U/L (0-31); Alkaline Phosphatase 68 U/L (39-117); Anion Gap 18 (12-20); Aspartate Amino Transferase 19 U/L (5-31); Bilirubin Direct 0.1 mg/dL (0.0-0.5); Bilirubin Total 0.4 mg/dL (0.0-1.0); Blood Urea Nitrogen 14 mg/dL (9-16); Calcium 9.8 mg/dL (8.4-10.2); Carbon Dioxide 24 mmol/L (22-29); Chloride 101 mmol/L (96-108); Creatinine Clr Calc Pharmacy 57.8; Estimated Glomerular Filt Rate > 60; Glucose Random 106 mg/dL (60-115); Magnesium 1.4 mg/dL (1.6-2.6); Potassium 3.5 mmol/L (3.3-5.1); Sodium 139 mmol/L (135-145); Total Protein 7.3 g/dL (6.5-8.0)
[2024-08-24 13:43] LABS: Troponin-I High Sensitivity < 2.7 ng/L (<3.5-17.0)
[2024-08-24 14:05] LABS: Influenza A PCR NEGATIVE (Negative); Influenza B PCR NEGATIVE (Negative); Resp Syncy Virus RNA Qual PCR NEGATIVE (Negative); SARS COV2 PCR INHOUSE NEGATIVE (Negative)
[2024-08-24 16:10] VITALS: BP 100/66; PULSE 79; RESP 16; TEMP 36.4; O2SAT 97
[2024-08-24] MEDS: Magnesium Oxide 400 MG TABLET 800 MG PO (17:34)
[2024-08-24 18:50] LABS: Troponin-I High Sensitivity < 2.7 ng/L (<3.5-17.0)
[2024-08-24 20:25] VITALS: BP 105/70; PULSE 76; RESP 16; TEMP 36.6; O2SAT 99
[2024-08-24] MEDS: predniSONE 20 MG TABLET 40 MG PO (20:28)
[2024-08-24 20:34] VITALS: BP 105/70; PULSE 76; RESP 16; TEMP 36.6; O2SAT 99
== END 2024-08-24 20:36 | disposition home or self-care (01) ==
PROVIDERS: Physician Assistant; Physician Assistant Medical; Emergency Provider Emergency Medicine; PCP General Practice
DX: J40 Bronchitis, not specified as acute or chronic (principal); R51.9 Headache, unspecified; M79.10 Myalgia, unspecified site; R06.02 Shortness of breath; R04.9 Hemorrhage from respiratory passages, unspecified; Z03.818 Encounter for observation for suspected exposure to other biological agents ruled out; Z79.899 Other long term (current) drug therapy
CPT/HCPCS: 0241U; 36415; 71046; 80048; 80076; 83735; 84484; 85025; 93005; 99283; 99284

== ENCOUNTER → 2024-08-24 11:58 | Outpatient (BNV) | payer MEDICARE, SELFPAY | PROVIDERS: Emergency Provider Emergency Medicine; PCP General Practice; Visit Provider Internal Medicine | DX: R06.02 Shortness of breath (principal) | CPT/HCPCS: 93010 ==

== ENCOUNTER 2025-01-16 10:24 | Outpatient (REF) | payer MEDICARE, SELFPAY ==
--- OUTSIDE RECORDS SUMMARY | 2025-01-16 12:14 | XMS_ITS | Clinical Summary ---
Author Organization [employer] Address [address] [facility] [address] [place] [address] Care Team Providers Care Executive Coordinator Name Role Phone Digna Weber MD Primary Care Provider [phone] Allergies No known active allergies Medications triamcinolone (Kenalog) 0.1 % ointment 01/05/20 23 Active Lancets (OneTouch Delica Plus [id number]) misc Apply 1 each topically 2 times daily. 100 each 11 01/02/20 24 Active glucose blood (OneTouch Ultra) test strip TEST BLOOD SUGAR EVERY DAY DIRECTED 50 strip 11 01/13/20 24 Active acetaminophen (Tylenol) 325 MG tablet Take 1 tablet (325 mg) by mouth every 6 (six) hours if needed for mild pain. 90 tablet 2 04/09/20 24 025 Active cetirizine (ZyrTEC) 10 MG tabletIndicatio ns:Eosinophil count raised Take 1 tablet (10 mg) by mouth Once per day. 90 tablet 3 05/25/20 24 Active lisinopril-hydr oCHLOROthiazide 20-12.5 MG tabletIndicatio ns:Primary hypertension TAKE 1 TABLET BY MOUTH DAILY 90 tablet 3 05/25/20 24 Active melatonin 5 MG tabletIndicatio ns:Sleep disturbance TAKE 2 TABLETS BY MOUTH EVERY DAY AT BEDTIME 180 tablet 3 05/25/20 24 Active metFORMIN XR (Glucophage-XR) 500 MG 24 hr tabletIndicatio ns:Non-insulin dependent type 2 diabetes mellitus (CMS/HCC) Take 2 tablets (1,000 mg) by mouth 2 times daily. Do not crush, chew, or split. 360 tablet 3 05/25/20 24 Active pravastatin (Pravachol) 40 MG tabletIndicatio ns:Non-insulin dependent type 2 diabetes mellitus (CMS/HCC) Take 1 tablet (40 mg) by mouth Once per day. 90 tablet 3 05/25/20 24 025 Active Blood Glucose Monitoring Suppl (ONE TOUCH ULTRA 2) w/Device kit Please use to check BS as directed 1 kit 10/10/19 25 Active Diclofenac Sodium 1 % gelIndications: Bilateral wrist pain Apply thin layer by topical route (quantity as directed on package insert) to wrists 3 times daily as needed. 50 g 3 12/18/19 25 Active ascorbic acid (Vitamin C) 500 MG tablet Take 1 tablet (500 mg) by mouth Once per day. 90 tablet 3 12/18/19 25 026 Active azithromycin (Zithromax) 250 MG tabletIndicatio ns:Mild persistent asthma without complication 08/24/20 24 Active Polyethylene Glycol 3350 (PEG 3350) 17 GM/SCOOP powder TAKE 17 GM MIXED IN 8 OUNCES OF WATER, COFFEE OR TEA ONCE DAILY 09/21/20 24 Active senna (Senokot) 8.6 MG tablet Take 1 tablet by mouth if needed in the morning and at bedtime for constipation . 06/21/20 24 Active albuterol 108 (90 Base) MCG/ACT inhalerIndicati ons:Mild intermittent asthma with acute exacerbation Inhale 2 puffs every 4 (four) hours if needed for wheezing. 18 g 3 01/17/20 25 Active predniSONE (Deltasone) 20 MG tabletIndicatio ns:Mild intermittent asthma with acute exacerbation Take 2 tablets (40 mg) by mouth Once per day. 10 tablet 01/17/20 25 Active Spacer/Aero-Hol ding Chambers (OptiChamber Elsa) misc 1 each every 4 (four) hours if needed (asthma). 1 each 01/17/20 25 Active albuterol 108 (90 Base) MCG/ACT inhalerIndicati ons:Mild persistent asthma without complication 08/24/20 24 025 Discontinued(Re order (will not trigger notification to Pharmacy)) predniSONE (Deltasone) 20 MG tabletIndicatio ns:Mild persistent asthma without complication 08/24/20 025 Discontinued(Re order (will not trigger notification to Pharmacy)) Active Problems Problem Noted Date Diagnosed Date Periodontal disease 09/05/2024 Class 1 obesity 08/26/2023 08/26/2023 Cystocele, midline 08/26/2023 08/26/2023 Diabetic neuropathy 08/26/2023 08/26/2023 Glaucoma 08/26/2023 08/26/2023 Insomnia 08/26/2023 08/26/2023 Rectocele 08/26/2023 08/26/2023 Arthritis of right ankle 10/20/2022 Overview (10/20/2022): Care managed by [facility]. Last appt 10/20/22 Followup 9 weeks Diabetic polyneuropathy asso ciated with type 2 diabetes mellitus 10/20/2022 Complete uterine prolapse 09/11/20212022 Hypertension 10/18/2018 08/26/2023 Assessment & Plan (12/18/2024 9:21 AM EDT): Maintenance: hydrochlorothiazide/Lisinopril At goal <140/90 BMP: Lipid Panel: ASCVD Risk: Calculate pending updated labs EKG: Obtain baseline at f/u - Aerobic exercise to reduce BP. Initial goal of 30 min walk 3-5x/week. Increase as tolerated. - low-sodium diet (goal: <2g/day) and heart healthy diet such as DASH to reduce BP and prevent ASCVD. - Home BP monitoring 1-2 x day with goal of <140/90. - Seek immediate medical attention for chest pain, palpitations, SOB, syncope, or sudden changes in mental status. - Do not change or discontinue current prescriptions without first consulting health care provider Onychomycosis 07/11/2015 Overview (08/26/2023): Care managed by [facility]. Last appt 10/20/22 Followup 9 weeks Eosinophil count raised 07/11/2015 08/26/20 Non-insulin dependent type 2 diabetes mellitus 1 08/26/2023 Assessment & Plan (12/18/2024 9:20 AM EDT): Current A1c: 7.2 BMP: ordered Microalbumin: 8mg/dL (2022) Foot Exam: Complete at follow up Eye Exam: Discuss at follow up Lipid panel: ordered ASCVD: Calculate pending updated labs Statin: Yes ASA: No MELINDA/ARB: No Encouraged regular aerobic exercise for improved glycemic control Encouraged daily foot checks Encouraged lean protein snacks and to avoid foods high in sugar and simple carbohydrates Treatment Goals: A1c goal: <7% FBG goal: <130 2 hour post prandial goal: <180 Assessment & Plan (01/04/2024 12:48 PM EDT): Current A1c: 6.4 BMP: Microalbumin: 8ng/dL Foot Exam: Complete at follow up Eye Exam: Discuss at follow up Lipid panel: today ASCVD: Calculate pending updated labs Statin: Yes ASA: No MELINDA/ARB: No Encouraged regular aerobic exercise for improved glycemic control Encouraged daily foot checks Encouraged lean protein snacks and to avoid foods high in sugar and simple carbohydrates Treatment Goals: A1c goal: <7% FBG goal: <130 2 hour post prandial goal: <180 Assessment & Plan (08/26/2023 2:17 PM EST): Current A1c: 7.0 BMP: today Microalbumin: today Foot Exam: Complete at follow up Eye Exam: Discuss at follow up Lipid panel: today ASCVD: Calculate pending updated labs Statin: Yes ASA: No MELINDA/ARB: No Encouraged regular aerobic exercise for improved glycemic control Encouraged daily foot checks Encouraged lean protein snacks and to avoid foods high in sugar and simple carbohydrates Treatment Goals: A1c goal: <7% FBG goal: <130 2 hour post prandial goal: <180 Depressive disorder 03/14/2013 08/26/2023 Knee pain 03/14/2013 08/26/2023 Eczema 03/21/2012 08/26/2023 Asthma 11/24/2011 08/26/2023 Hyperlipidemia 11/24/2011 08/26/2023 Encounters Date Type Department Care Team Description 01/16/2025 9:40 AM EDT Office Visit [facility] [address] [place] [phone] Mild intermittent asthma with acute exacerbation (Primary Dx); Hypomagnesemia; Acute URI 12/17/2024 4:00 PM EDT Office Visit [facility] [address] [place] [phone] Digna Weber MD Primary hypertension (Primary Dx); Non-insulin dependent type 2 diabetes mellitus (CMS/HCC); Dietary counseling; Exercise counseling; Overweight; Diabetic polyneuropathy associated with type 2 diabetes mellitus (CMS/HCC); Mild persistent asthma without complication; Bilateral wrist pain 12/17/2024 Travel 12/17/2024 Telephone [facility] [address] [place] [phone] Digna Weber MD insurance 12/07/2024 Patient Outreach [facility] [address] [place] [phone] Digna Weber MD Pre-visit Planning (SDOH screening negative and tobacco screening negative) from Last 3 Months Immunizations Name Administration Dates Next Due Hep B, adult 01/21/2010,06/03/2009,04/30/2009 Influenza injectable quadriv alent IIV4 with preservative 07/05/2018,07/13/2017 Influenza injectable quadriv alent preservative free 08/26/2023,08/04/2021,07/28/2016 Influenza, IIV3, injectable 07/06/2011 Influenza, seasonal, injecta ble, preservative free 06/12/2015 Pneumococcal Conjugate PCV 20 05/25/2024 Pneumococcal Polysaccharide PPSV23 04/30/2009 TD (adult), 2 Lf tetanus tox oid, preservative free, adsorbed 01/01/2022 Tdap 07/23/2010 Zoster, Recombinant 03/09/2022,01/01/2022 Family History Medical History Relation Name Comments Throat cancer Father Cervical cancer Mother Glaucoma Mother Hypertension Mother Colon cancer Sister Relation Name Status Comments Father Mother Sister Social History Tobacco Use Types Packs/Day Years Used Date Smoking Tobacco: Never Passive Smoke Exposure: Never Smokeless Tobacco: Never Tobacco Cessation:Counseling Given: Not Answered Alcohol Use Standard Drinks/Week Comments Never 0 (1 standard drink = 0.6 oz pur e alcohol) Housing Stability Answer Date Recorded What is your housing situation today? I have jocelin cassidy 12/07/[address] you li ve. Do you have problems with any of the following? None of the above 12/07/2024 Food Insecurity Answer Date Recorded Within the past 12 months, y ou worried that your food would run out before you got money to buy more: Never True 12/07/2024 Within the past 12 months,th e food you bought just didn't last and you didn't have enough money to get more: Never True Transportation Answer Date Recorded In the past 12 months, has l ack of transportation kept you from medical appts, meetings, work or from getting things needed for daily living? No 12/07/2024 Utilities Answer Date Recorded In the past 12 months, has t he electric, gas, oil or water company threatened to shut off services in your home? No 12/07/2024 Internet Access Answer Date Recorded Internet Access Q1 Yes 12/07/2024 Internet Access Q2 Not on file 12/07/2024 Comments Unknown Sex and Gender Information Value Date Recorded Sex Assigned at Female 07/26/2022 10:16 AM EDT Legal Sex Female 10:16 AM EDT Gender Identity Female 07/26/2022 10:16 AM EDT Sexual Orientation Straight 07/26/2022 10 :16 AM EDT Last Filed Vital Signs Vital Sign Reading Time Taken Comments Blood Pressure 131/77 01/16/2025 9:38 AM EDT Pulse 95 01/16/2025 9:38 AM EDT Temperature 36.8 ??C (98.2 ??F) 01/16/2025 9:38 AM ED T Respiratory Rate 18 01/16/2025 9:38 AM EDT Oxygen Saturation 97% 01/16/2025 9:38 AM EDT Inhaled Oxygen Concentration - - Weight 66.1 kg (145 lb 12.8 oz) 01/16/2025 9:38 AM EDT Height 144.8 cm (4' 9 ) 12/17/2024 3:56 PM EDT Body Mass Index 31.55 12/17/2024 3:56 PM EDT Plan of Treatment Health Maintenance Due Date Last Done Comments CT Colonography 1960 Colonoscopy 1959 Colorectal Cancer Screening 1960 Dental Prophylaxis 1960 Depression Screening 1960 FIT DNA/Cologuard 1959 FIT 1959 FOBT 1960 Sigmoidoscopy 1959 Alcohol/Substance Use Screening 1971 RSV Patients and Patients Aged 60 years or older (1 - Risk 60-74 years 1-dose series) 2019 Dental Oral Exam 04/15/2023 10/15/2022 Dental X-Ray: Bitewings 10/16/2023 10/15/2022 COVID-19 Vaccine ( season) 2024 01/04/2022, 08/04/2021, 01/05/2021 Influenza Vaccine (#1) 2024 , 08/04/2021, 07/05/2018, Additional history exists Diabetes: Urine Protein Screening 08/26/2024 08/26/2023, 04/12/2022, 03/12/2021 Lipid Panel 08/26/2024 08/26/2023, 03/26, 03/12/2021 Diabetes: Hemoglobin A1C 03/19/2025 025, 05/25/2024, 01/02/2024, Additional history exists Pap Smear 03/23/2025 03/23/2022, 02/10/2021 Mammogram 04/22/2025 04/22/2023, 03/27, 03/22/2022, Additional history exists Diabetes: Foot Exam 05/25/2025 05/25/2024, 05/25/2024, 05/25/2024, Additional history exists Dental X-Ray: Full Mouth 10/16/2025 10/15/2022 SDOH Screening 12/07/2025 12/07/2024 Tobacco Screening 01/16/2026 01/16/2025 Eye Exam 03/12/2026 03/12/2024, 02/24, 03/12/2024, Additional history exists Cervical Cancer Screening 03/23/2027 HPV/Cotest 03/23/2027 03/23/2022, 01/24, 09/13/2018, Additional history exists DTaP/Tdap/Td Vaccines (3 - Td or Tdap) 01/02/2032 01/01/2022, 07/23/2010 Hepatitis B Vaccines Completed 01/21/2010, 06/03/2009, 04/30/2009 Hepatitis C Screening Completed 11/30/2021 Zoster Vaccines Completed 03/09/2022, 01/01/2022 Pneumococcal Vaccine: 50+ Years Completed 05/25/2024, 04/30/2009 HIB Vaccines Aged Out No longer eligi ble based on patient's age to complete this topic HPV Vaccines Aged Out No longer eligi ble based on patient's age to complete this topic Hepatitis A Vaccines Aged Out No long er eligible based on patient's age to complete this topic IPV Vaccines Aged Out No longer eligi ble based on patient's age to complete this topic Meningococcal Vaccine Aged Out No roby elayne eligible based on patient's age to complete this topic RSV under 20 months Aged Out No longe r eligible based on patient's age to complete this topic Rotavirus Vaccines Aged Out No longer eligible based on patient's age to complete this topic Procedures Procedure Name Priority Date/Time Associated Diagnosis Comments POCT INFLUENZA B (ID NOW RAPID MOLECULAR) Routine 01/16/2025 9:56 AM EDT Acute URI POCT INFLUENZA A (ID NOW RAPID MOLECULAR) Routine 01/16/2025 9:56 AM EDT Acute URI POCT RAPID STREP A Routine 01/16/2025 9: 56 AM EDT Acute URI POCT RAPID COVID ANTIGEN Routine 01/16/2025 9:56 AM EDT Acute URI POCT GLUCOSE Routine 12/17/2024 4:10 PM EDT Non-insulin dependent type 2 diabetes mellitus (CMS/HCC) POCT GLYCATED HEMOGLOBIN, TOTAL Routine 12/17/2024 4:10 PM EDT Non-insulin dependent type 2 diabetes mellitus (CMS/HCC) ALBUMIN, RANDOM URINE W/CREATININE Routine 08/26/2023 2:06 PM EST LIPID PANEL, STANDARD Routine 08/26/2023 2:06 PM EST Diabetic polyneuropathy associated with type 2 diabetes mellitus (CMS/HCC) BI MAMMOGRAM SCREENING TOMOSYNTHESIS BILATERAL Routine 04/22/2023 4:13 PM EDT INTRAORAL - COMPLETE SERIES OF RADIOGRAPHIC IMAGES Routine 10/15/2022 11:00 AM EST COMPREHENSIVE ORAL EVALUATION - NEW OR ESTABLISHED PATIENT Routine 10/15/2022 11:00 AM EST THINPREP IMAGING PAP AND HPV MRNA E6/E7, WITH CT/NG, TRICHOMONAS Routine 03/23/2022 11:15 AM EDT ZZZ HISTORICAL HEPATITIS C AB W/REFL TO HCV RNA, QN, PCR Routine 11/30/2021 10:10 AM EST from Last 3 Months or Most Recently Relevant to Health Maintenance Results * Influenza B (ID NOW Rapid Molecular) (01/16/2025 9:56 AM EDT) Pathologist [facility] Influenza B Negative Negative, Indeterminate [facility] Swab 01/16/2025 9:56 AM EDT us Chad Goetz MD POINT OF CARE TEST ENTER/EDIT OR DERABLES Final Result Performing Organization Address [facility]/ZIP Co de Phone Number [facility] [address] [place] [phone] * Influenza A (ID NOW Rapid Molecular) (01/16/2025 9:56 AM EDT) [facility] Influenza A Negative Negative, Indeterminate [facility] Swab 01/16/2025 9:56 AM EDT us Chad Goetz MD POINT OF CARE TEST ENTER/EDIT OR DERABLES Final Result Performing Organization Address [facility]/ZIP Co de Phone Number [facility] [address] [place] [phone] * POCT Rapid COVID Ag (01/16/2025 9:56 AM EDT) Rapid COVID Ag Negative [facility] Swab 01/16/2025 9:56 AM EDT Chad Goetz MD POINT OF CARE TEST ENTER/EDIT OR DERABLES Final Result Performing Organization Address City/[facility]/ZIP Co de Phone Number [facility] [address] [place] [phone] * POCT rapid strep A manually resulted (01/16/2025 9:56 AM EDT) Rapid Strep A Screen Negative Negative, None Detected [facility] Swab 01/16/2025 9:56 AM EDT Chad Goetz MD POINT OF CARE TEST ENTER/EDIT OR DERABLES Final Result Performing Organization Address [facility] Co de Phone Number [facility] [address] [place] [phone] * (ABNORMAL) POCT HGB A1C (12/17/2024 4:10 PM EDT) Hemoglobin A1C 7.2(A) 4.0 - 6.0 % QC Media Lot # [id number] Lot# Expiration Date Blood 12/17/2024 4:10 PM EDT Digna Weber MD POINT OF CARE TEST ENTER/EDIT ORDERABLES Final Result * POCT Glucose (12/17/2024 4:10 PM EDT) Glucose Blood, POC 115 60 - 200 mg/dL QC Media Lot # [id number] Lot# Expiration Date 172,025 Blood Capillary blood specimen / Unknown 12/17/2024 4:10 PM EDT Digna Weber MD POINT OF CARE TEST ENTER/EDIT ORDERABLES Final Result * Albumin, Random Urine W/Creatinine (08/26/2023 2:06 PM EST) Creatinine, Urine 71.65 mg/dL [facility] Microalbumin Urine 8.0 mg/L H [facility] Microalbum Creatinine Ratio Ur 11.1 <30 ug/mg cr [facility] Comment:Albumin/Creatinine R atio Reference Ranges: Normal: < 30 ug/mg creatinine Microalbuminuria: 30 - 300 ug/mg creatinineClinical Albuminuria: > 300 ug/mg creatinine 08/26/2023 2:06 PM EST 08/26/2023 4:04 PM EST us Digna Weber MD LAB URINE ORDERABLES Final Res ult [facility] [address] [place] [phone] * (ABNORMAL) Lipid Panel, Standard (08/26/2023 2:06 PM EST) Triglycerides 275(H) <150 mg/dL [facility] Comment:Desirable Triglyceri de: less than 150 mg/dLBorderline High Triglyceride 150-199 mg/dLHigh Triglyceride: 200-499 mg/dLVery High Triglyceride: greater than or equal to 5OO mg/dL Cholesterol 180 <200 mg/dL [facility] Comment:Desirable Cholestero l: less than 200 mg/dLBorderline High Cholesterol: 200-239 mg/dLHigh Cholesterol: greater than 239 mg/dL LDL Cholesterol Calculated 72 <100 mg/dL [facility] Comment:Desirable LDL: less than 100 mg/dLNear Optimal/Above Optimal LDL: 110- 129 mg/dLBorderline High LDL: 130-159 mg/dLHigh LDL: 160-189 mg/dLVery High LDL: greater than or equal to 190 mg/dL HDL Cholesterol 53 >40 mg/dL [facility] Comment:Desirable HDL: great er than 40 mg/dL Note: This HDL assay may give artificially low results in patients with liver disease. Blood Venous blood specimen / Unknown 08/26/2023 2:06 PM EST 08/26/2023 4:07 PM EST us Digna Weber MD LAB BLOOD ORDERABLES Final Res ult [facility] [address] [place] [phone] [phone] * BI Mammogram Screening Tomosynthesis Bilateral (04/22/2023 4:13 PM EDT) Anatomical Region Laterality Modality Breast Bilateral Mammography 04/22/2023 4:13 PM EDT Narrative 05/10/2023 10:15 PM EDT ? [facility] [place] ? [address] ?[place] [address] ? Mammography Report ? Signed ? Patient: Wilton,Genoveva ?MR#: [id number] ?? 52 ? : 1960 ?Acct:[id number] ? Age/Sex: 62 / F ?ADM Date: 04/22/23 ? Loc: HO.MAMMO ? Attending Dr: Bri Lynne DO ? Ordering Physician: Bri Lynne DO ?Results: ? Date of Service: 04/22/23 ?Follow Up: ? Procedure(s): MM tomosynthesis screening BI ?? Accession Number(s): [id number] ? cc: Bri Lynne DO ? EXAMINATION: ?? MM SCREENING DIGITAL BREAST TOMOSYNTHESIS, BILATERAL ? CLINICAL INFORMATION: ? Screening. Asymptomatic. ? The lifetime risk of breast cancer based on the Tyrer-Cuzick Model is ?? 7.6%. ? COMPARISON: ?? Mammography: This study is compared with prior exams dating back to ?? 2017. ? TECHNIQUE: ?? Digital breast tomosynthesis is performed in both the craniocaudal and ?? mediolateral oblique views along with computer-aided detection (CAD). ?? Synthesized 2D images are generated from the tomosynthesis. ? FINDINGS: ?? There are scattered areas of fibroglandular density (ACR BI-RADS breast ?? composition Category b). ? There are no significant masses, abnormal calcifications, or other ?? abnormalities. ? MM/MM tomosynthesis screening BI ?? IMPRESSION: ?? No mammographic evidence of malignancy. ? ASSESSMENT: ? BI-RADS BI-RADS 1 - Negative ? RECOMMENDATION: ?? Routine annual mammography screening. ? 1 year F/U ? This examination should not preclude the clinical evaluation of a ?? suspicious palpable abnormality. ? This patient's information was entered into a reminder system with a ?? target due date for their next mammogram. ? Dictated By: ?Shelbie Guzman MD ? Signed By: ?<Electronically signed by Shelbie Guzman MD in OV> ? 05/10/23 2212 ? DD/ ? TD/TT: ? Service Observer Chief: ? Procedure Note Kaylen, Jerome - 05/10/2023 [facility] [address] [place] [address] Mammography Report Signed Patient: Kayla Núñez#: [id number] 52 : 9Acct:[id number] Age/Sex: 62 / FADM Date: 04/22/23 Loc: [facility] Attending Dr: Bri Lynne DO Ordering Physician: Bri Lynneults: Date of Service: 04/22/23Follow Up: Procedure(s): MM tomosynthesis screening BI Accession Number(s): [id number] cc: Bri Lynne DO EXAMINATION: MM SCREENING DIGITAL BREAST TOMOSYNTHESIS, BILATERAL CLINICAL INFORMATION: Screening. Asymptomatic. The lifetime risk of breast cancer based on the Tyrer-Cuzick Model is 7.6%. COMPARISON: Mammography: This study is compared with prior exams dating back to 2017. TECHNIQUE: Digital breast tomosynthesis is performed in both the craniocaudal and mediolateral oblique views along with computer-aided detection (CAD). Synthesized 2D images are generated from the tomosynthesis. FINDINGS: There are scattered areas of fibroglandular density (ACR BI-RADS breast composition Category b). There are no significant masses, abnormal calcifications, or other abnormalities. MM/MM tomosynthesis screening BI IMPRESSION: No mammographic evidence of malignancy. ASSESSMENT: BI-RADS BI-RADS 1 - Negative RECOMMENDATION: Routine annual mammography screening. 1 year F/U This examination should not preclude the clinical evaluation of a suspicious palpable abnormality. This patient's information was entered into a reminder system with a target due date for their next mammogram. Dictated By: Shelbie Guzman MD Signed By: <Electronically signed by Shelbie Guzman MD in OV> 05/10/23 2212 DD/ 1613 TD/TT: Service Observer Chief: Bri Lynne DO IMG BI PROCEDURES Edited Res ult - Final * THINPREP TIS PAP AND HPV mRNA E6/E7, CT/NG, TRICH (03/23/2022 11:15 AM EDT) Chlamydia trachomatis RNA, TMA, Urogenital NOT DETECTED NOT DETECTED [facility] Clinical Information: None given [facility] COMMENT SEE COMMENT [facility] Comment: The analytical performance characteristics of this assay, when used to test SurePath(TM) specimens have been determined by [employer]. The modifications have not been cleared or approved by the FDA. This assay has been validated pursuant to the CLIA regulations and is used for clinical purposes. ?? For additional information, please refer to https://education.[employer].com/faq/ZIO571 (This link is being provided for information/ educational purposes only.) ?? COMMENT SEE COMMENT [facility] Comment: EXPLANATORY NOTE: ? The Pap is a screening test for cervical cancer. It is ?? not a diagnostic test and is subject to false negative ?? and false positive results. It is most reliable when a ?? satisfactory sample, regularly obtained, is submitted ?? with relevant clinical findings and history, and when ?? the Pap result is evaluated along with historic and ?? current clinical information. ?? COMMENT: This Pap test has been evaluated with computer assisted technology. [facility] Makeup Instructor: SEE COMMENT [facility] Comment: CMG, CT(ASCP) CT screening location: [address] ??[id number] HPV nRNA E6/E7 Not Detected Not Detected [facility] Comment: Methodology: Nurse Practitioner Physician Assistant-Mediated Amplification This assay detects E6/E7 viral messenger RNA (mRNA) from 14 high-risk HPV types (16,18,31,33,35,39,45,51,52,56,58,59,66,68). ? Cervical sources are required for HPV testing. If a vaginal source from a patient who has had a total hysterectomy with removal of cervix was ?? submitted, please contact the testing laboratory for alternative testing options. ?? For additional information, please refer to http://education.[employer].com/faq/UFQ293i3 (This link if provided for information/ educational purposes only.) Infection Shift in vaginal filiberto suggestive of bacterial vaginosis. [facility] Interpretation/Re sult: Negative for intraepithelial lesion or malignancy. [facility] LMP: NONE GIVEN [facility] Neisseria gonorrhoeae RNA, TMA, Urogenital NOT DETECTED NOT DETECTED [facility] Prev. BX: NONE GIVEN [facility] Prev. PAP: NONE GIVEN [facility] Review Makeup Instructor: SEE COMMENT [facility] Comment: MSM, CT(ASCP) CT screening location: [address] ??[address] SOURCE: None given [facility] Statement Of Adequacy: [facility] Comment: Satisfactory for evaluation. Endocervical/transformation zone component absent. Partially obscuring inflammation Partially obscuring blood Trichomonas vaginalis, QL, TMA, PAP Vial NOT DETECTED NOT DETECTED [facility] Comment: The analytical performance characteristics of this assay have been determined by [employer]. The modifications have not been cleared or approved by the FDA. This assay has been validated pursuant to the CLIA regulations and is used for clinical purposes. ?? For additional information, please refer to [email or web address] (This link is being provided for information/ educational purposes only.) ?? NO COLLECTION DATE RECEIVED. WE HAVE USED THE DATE THE SPECIMEN WAS RECEIVED BY THIS LABORATORY THE COLLECTION DATE. IF THIS IS INCORRECT, PLEASE CONTACT CLIENT SERVICES. PHONE NUMBER: ?? 03/23/2022 11:1 5 AM EDT Oxana Daniels NP LAB PATHOLOGY ORDERABLES Final Result Performing Organization Address [facility] [address] * HEPATITIS C AB W/REFL TO HCV RNA, QN, PCR (11/30/2021 10:10 AM EST) HEPATITIS C ANTIBODY NON-REACT JANE NON-REACT [facility] INDEX 0.01 <1.00 [facility] Comment: ?? HCV antibody was non-reactive. There is no laboratory ?? evidence of HCV infection. ?? In most cases, no further action is required. However, if recent HCV exposure is suspected, a test for HCV RNA (test code 00643) is suggested. ?? For additional information please refer to [email or web address]/[email or web address] (This link is being provided for informational/ educational purposes only.) ?? 11/30/2021 10:1 0 AM EST us Oxana Daniels NP HISTORICAL/NON ORDERABLE LABS F inal Result Performing Organization Address [facility] Number [facility] [address] from Last 3 Months or Most Recently Relevant to Health Maintenance Insurance [facility] DUAL COMPLETE DENTAL - [facility] S[facility] * Guarantor: Vahid Núñezmen Account Type Relation to Patient Date of Phone Billing Address Personal/Family Self [address] [place] Care Teams Executive Coordinator Relationship Specialty Start Date End Date Digna Weber MD [address] [place] [id number] PCP - General Family Medicine 07/05/23
--- OUTSIDE RECORDS SUMMARY | 2025-01-16 12:14 | XMS_ITS | Encounter Summary ---
Author Organization [employer] Address [address] [place] [address] [place] [address] Care Team Providers Care Granulating Machine Operator Name Role Phone Briseyda Broderick Primary Care Provider [phone] Digna Weber MD Primary Care Provider [phone] Encounter Details Date Type Department Care Team (Late st Contact Info) Description 04/19/2023 Abstract [facility] MED[facility] [address] [place], [place] [phone] Briseyda Broderick FNP [address] [place] [address] Dept [place] [address] Social History Tobacco Use Types Packs/Day Years Used Date Smoking Tobacco: Never Passive Smoke Exposure: Never Smokeless Tobacco: Never Alcohol Use Standard Drinks/Week Comments Never 0 (1 standard drink = 0.6 oz pur e alcohol) Comments Unknown Sex and Gender Information Value Date Recorded Sex Assigned at Female 07/26/2022 10:16 AM EDT Legal Sex Female 10:16 AM EDT Gender Identity Female 07/26/2022 10:16 AM EDT Sexual Orientation Straight 07/26/2022 10 :16 AM EDT documented as of this encounter Plan of Treatment Not on file documented as of this encounter Visit Diagnoses Not on filedocumented in this encounter Care Teams Granulating Machine Operator Relationship Specialty Start Date End Date Briseyda Broderick FNP PCP - General Family Medicine 03/21/23 07/04/23 Digna Weber MD [address] [place], [place] [phone] PCP - General Family Medicine 07/05/23 documented as of this encounter
--- OUTSIDE RECORDS SUMMARY | 2025-01-16 12:14 | XMS_ITS | Encounter Summary ---
Author Organization [employer] Address [address] [facility] [address] [place] [address] Care Team Providers Care Topper Packer Name Role Phone Digna Weber MD Primary Care Provider [phone] Reason for Visit * Reason Comments Cough Sore Throat Encounter Details Date Type Department Care Team ([facility] st Contact Info) Description 01/16/2025 9:40 AM EDT Office Visit [facility] [address] [place] [address] Mild intermittent asthma with acute exacerbation (Primary Dx); Hypomagnesemia; Acute URI Social History Tobacco Use Types Packs/Day Years [...] AM EDT documented as of this encounter Last Filed Vital Signs Vital Sign Reading [...] 12.8 oz) 01/16/2025 9:38 AM EDT Height - - Body Mass Index 31.55 12/17/2024 3:56 PM EDT documented in this encounter Plan of Treatment Scheduled Orders Name Type Priority Associated Diagnoses Orde r Schedule Magnesium Lab Routine Hypomagnesemia Expected: 01/16/2025, Expires: 01/16/2026 documented as of this encounter Procedures Procedure Name Priority Date/Time Associated Diagnosis Comments POCT INFLUENZA B (ID NOW RAPID MOLECULAR) Routine 01/16/2025 9:56 AM EDT Acute URI POCT INFLUENZA A (ID NOW RAPID MOLECULAR) Routine 01/16/2025 9:56 AM EDT Acute URI POCT RAPID COVID ANTIGEN Routine 01/16/2025 9:56 AM EDT Acute URI POCT RAPID STREP A Routine 01/16/2025 9: 56 AM EDT Acute URI documented in this encounter Results * Influenza B (ID NOW Rapid Molecular) (01/16/2025 9:56 AM EDT) Influenza B Negative Negative, Indeterminate [facility] Swab 01/16/2025 9:56 AM EDT us Chad Goetz MD POINT OF CARE TEST ENTER/EDIT OR DERABLES Final Result Performing Organization Address [facility] [[email or web address]] Co de Phone Number [facility] [address] [place] [address] [phone] * Influenza A (ID NOW Rapid Molecular) (01/16/2025 9:56 AM EDT) Influenza A Negative Negative, Indeterminate [facility] Swab 01/16/2025 9:56 AM EDT us Chad Goetz MD POINT OF CARE TEST ENTER/EDIT OR DERABLES Final Result Performing Organization Address [facility] [[email or web address]] Co de Phone Number [facility] [address] [place] [phone] * POCT rapid strep A manually resulted (01/16/2025 9:56 AM EDT) Pathologist [facility] Rapid Strep A Screen Negative Negative, None Detected [facility] Swab 01/16/2025 9:56 AM EDT us Chad Goetz MD POINT OF CARE TEST ENTER/EDIT OR DERABLES Final Result Performing Organization Address [facility] [[email or web address]] Co de Phone Number [facility] [address] [place] [address] [phone] * POCT Rapid COVID Ag (01/16/2025 9:56 AM EDT) Rapid COVID Ag Negative [facility] Swab 01/16/2025 9:56 AM EDT us Chad Goetz MD POINT OF CARE TEST ENTER/EDIT OR DERABLES Final Result Performing Organization Address [facility] [[email or web address]] Co de Phone Number [facility] [address] [place] [address] [phone] documented in this encounter Visit Diagnoses Diagnosis Mild intermittent asthma with acute exacerbation- Primary Hypomagnesemia Disorders of magnesium metabolism Acute URI Acute upper respiratory infections of unspecified site documented in this encounter Care Teams Topper Packer Relationship Specialty Start Date End Date Digna Weber MD [address] [place] [address] PCP - General Family Medicine 07/05/23 documented as of this encounter
--- OUTSIDE RECORDS SUMMARY | 2025-01-16 12:14 | XMS_ITS | Encounter Summary ---
Author Organization [email or web address] Address [address] [facility] 7t [place] [address] Care Team Providers Care Senior Physician Name Role Phone Briseyda Broderick Primary Care Provider [phone] Briseyda Broderick Primary Care Provider [phone] Digna Weber MD Primary Care Provider [phone] Encounter Details Date Type Department Care Team (Late st Contact Info) Description 01/12/2023 Orders Only [facility] [address] [place] [address] Bri Turpin LPN Social History Tobacco Use Types Packs/Day Years [...] on filedocumented in this encounter Care Teams Senior Physician Relationship Specialty Start Date End Date Briseyda Broderick FNP PCP - General Family Medicine 05/20/22 03/09/23 Briseyda Broderick FNP PCP - General Family Medicine 03/21/23 07/04/23 Digna Weber MD [address] [place] [address] PCP - General Family Medicine 07/05/23 documented as of this encounter
[2025-01-16 12:24] LABS: Alanine Aminotransferase 32 U/L (0-31); Alkaline Phosphatase 75 U/L (39-117); Anion Gap 9 (12-20); Aspartate Amino Transferase 29 U/L (5-31); Bilirubin Total 0.2 mg/dL (0.0-1.0); Blood Urea Nitrogen 12 mg/dL (9-16); Carbon Dioxide 31 mmol/L (22-29); Chloride 102 mmol/L (96-108); Cholesterol 172 mg/dL (<200); Estimated Glomerular Filt Rate > 60; Glucose Random 204 mg/dL (60-115); HDL Cholesterol 46 mg/dL (>40); LDL Cholesterol Calculated 59 mg/dL (<100); Magnesium 1.7 mg/dL (1.6-2.6); Sodium 138 mmol/L (135-145); Triglycerides 335 mg/dL (<150)
[2025-01-16 12:33] LABS: Creatinine Urine 52.21 mg/dL; Microalbumin Urine < 5.0 mg/L
== END 2025-01-16 10:25 | disposition home or self-care (01) ==
LOC: HO.HHCL 10:24
PROVIDERS: Emergency Medicine; Visit Provider General Practice
DX: E11.9 Type 2 diabetes mellitus without complications (principal); E83.52 Hypercalcemia
CPT/HCPCS: 36415; 80053; 80061; 82043; 82570; 83735

== ENCOUNTER 2025-06-14 16:10 | Outpatient (REF) | payer OTHER, SELFPAY ==
--- OUTSIDE RECORDS SUMMARY | 2025-06-14 09:30 | XMS_ITS | Encounter Summary ---
Author Organization [email or web address] Address [address] [place] [address] 7t [place] [address] Care Team Providers Care Conditioner Tender Name Role Phone Digna Weber MD Primary Care Provider [phone] Reason for Referral * Imaging (Routine) - Authorized Specialty Diagnoses / Procedures Referred By Contac t Referred To Contact Radiology Diagnoses Screening mammogram for breast cancer Procedures BI Mammogram Screening Tomosynthesis Bilateral Digna Weber MD [address] [place] [address] Phone: tel: fax: [address] Phone: tel: fax: Referral ID Status Reason Start Date Expiration Date V isits Requested Visits Authorized [id number] Authorized 06/14/2025 06/14/2026 1 1 Reason for Visit * Reason Comments Follow-up Encounter Details Date Type Department Care Team (Late st Contact Info) Description 06/14/2025 9:30 AM EDT Office Visit [facility] [address] [place], [place] [phone] Digna Weber MD [address] [place], [place] [phone] Screening mammogram for breast cancer (Primary Dx); Non-insulin dependent type 2 diabetes mellitus (CMS/HCC); Screening for colon cancer; Screening for cervical cancer Social History Tobacco Use Types Packs/Day Years Used Date Smoking Tobacco: Never Passive Smoke Exposure: Never Smokeless Tobacco: Never Alcohol Use Standard Drinks/Week Comments Never 0 (1 standard drink = 0.6 oz pur e alcohol) Depression Answer Date Recorded Patient Health Questionnaire-9 Score 2 06/14/2025 Patient Health Questionnaire-9 Score 2 06/14/2025 Last PHQ-9: Questionnaire Data Not on file 0 06/14/2025 Housing Stability Answer Date Recorded What is [...] off services in your home? No 12/07/2024 Depression Answer Date Recorded Patient Health Questionnaire-2 Score 0 06/14/2025 Internet Access Answer Date Recorded Internet Access [...] Sign Reading Time Taken Comments Blood Pressure 110/60 06/14/2025 9:07 AM EDT Pulse 71 06/14/2025 9:07 AM EDT Temperature 36.1 C (96.9 F) 06/14/2025 9:07 AM EDT Respiratory Rate 20 06/14/2025 9:07 AM EDT Oxygen Saturation 99% 06/14/2025 9:07 AM EDT Inhaled Oxygen Concentration - - Weight 65.9 kg (145 lb 3.2 oz) 06/14/2025 9:07 A M EDT Height 144.8 cm (4' 9 ) 06/14/2025 9:07 AM EDT Body Mass Index 31.42 06/14/2025 9:07 AM EDT documented in this encounter Functional Status * Over the past 2 weeks, how often have you been bothered by any of the following problems? Question Answer Date of Assessment Author Patient Health Questionnaire -2 Score 0 06/14/2025 10:31 AM [place] Sofia [place] * Little interest or pleasure in doing things Answer Date of Assessment Author Not at all 06/14/2025 10:31 AM [place] Sofia [place] * Feeling down, depressed, or hopeless Answer Date of Assessment Author Not at all 06/14/2025 10:31 AM [place] Sofia [place] * Trouble falling or staying asleep, or sleeping too much Answer Date of Assessment Author More than half the days 06/14/2025 10:31 AM [place] Sofia [place] * Feeling tired or having little energy Answer Date of Assessment Author Not at all 06/14/2025 10:31 AM [place] Sofia [place] * Poor appetite or overeating Answer Date of Assessment Author Not at all 06/14/2025 10:31 AM [place] Sofia [place] * Feeling bad about yourself - or that you are a failure or have let yourself or your family down Answer Date of Assessment Author Not at all 06/14/2025 10:31 AM [place] Sofia MA * Trouble concentrating on things, such as reading the newspaper or watching television Answer Date of Assessment Author Not at all 06/14/2025 10:31 AM Boston Sofia MA * Moving or speaking so slowly that other people could have noticed? Or the opposite - being so fidgety or restless that you have been moving around a lot more than usual. Answer Date of Assessment Author Not at all 06/14/2025 10:31 AM Boston Sofia MA * Thoughts that you would be better off or hurting yourself in some way Answer Date of Assessment Author Not at all 06/14/2025 10:31 AM EDT Boston Graves MA * Patient Health Questionnaire-9 Score Answer Date of Assessment Author 2 06/14/2025 10:31 AM EDT Boston Graves MA * How difficult have these problems made it for you to do your work, take care of things at home, or get along with other people? Answer Date of Assessment Author Not difficult at all 06/14/2025 10:31 AM EDT Boston Aviles MA documented as of this encounter Progress Notes * Digna Weber MD - 06/14/2025 9:30 AM EDT Images from the original note were not included. SUBJECTIVE: Genoveva Núñez is a 64 y.o. year old female who presents for chronic disease management. Denies recent illness, ER visit, or hospitalization. Acute Concerns: Pain in wrists and hands when doing heavy lifting/moving things Due for colon cancer, breast cancer, and cervical cancer screening. WIll Interim Updates and Plans: S/P prolapse/rectocele repair in early 2023 Doing well, no further pain Asthma, mild persistent 08/25/24 asthma exac, ER Stable now Hypertension At goal at home <140/90 and here Pertinent negatives include chest pain, diaphoresis, dyspnea, headache, irregular heartbeat/palpitations, nausea, tinnitus, transient weakness, visual disturbances and vomiting. Additional information: Currently taking Lisinopril/HCTZ 20-12.5 mg daily, denies adverse effects associated with therapy. Diabetes A1C 7.7 Gluc 170 Sees podiatry for regular foot exam at [facility] Risk factors include: obesity, over age 4544 years old and sedentary lifestyle. Patient is compliant with using medication, and follow-up. Managing with: Oral medications. Comorbidity: Hypertension. Pertinent negatives include blurred vision, burning of extremities, chest pain, constant hunger, diarrhea, dyspnea, foot ulcers, urinary frequency, hypoglycemic episodes, nocturia, polydipsia and slow healing wounds / sores. Additional information: Currently taking metformin 1,000 mg BID and tolerating well. Eczema Sees Derm in [place] Takes topical steroids with good relief of symptoms Health Maintenance Pap- 02/2022 NILM, HPV neg; 02/2027 DUE Mammo-03/2023 Birads 1, ordered 06/14/2205 Colon- 2020 normal, due for cologuard Imms- COVID, flu, RSV Patient Active Problem List Diagnosis Date Noted Periodontal disease 09/05/2024 Class 1 obesity 08/26/2023 Cystocele, midline 08/26/2023 Diabetic neuropathy ([facility]) 08/26/2023 Glaucoma 08/26/2023 Insomnia 08/26/2023 Rectocele 08/26/2023 Complete uterine prolapse 09/11/2021 Hypertension 10/18/2018 Eosinophil count raised 07/11/2015 Non-insulin dependent type 2 diabetes mellitus ([facility]) 07/11/2015 Depressive disorder 03/14/2013 Knee pain 03/14/2013 Eczema 03/21/2012 Asthma 11/24/2011 Hyperlipidemia 11/24/2011 Arthritis of right ankle 10/20/2022 Diabetic polyneuropathy associated with type 2 diabetes mellitus ([facility]) 10/20/2022 Onychomycosis 07/11/2015 Surgical History[1] Social History Social History Narrative Retired Likes to exercise, chasidy Has five grandchildren in the area Review of Systems Constitutional: Negative. HENT: Negative. Respiratory: Negative. Cardiovascular: Negative. Gastrointestinal: Negative. Musculoskeletal: Positive for arthralgias and joint swelling. Skin: Positive for rash. OBJECTIVE: Vitals: 06/14/25 0907 BP: 110/60 BP Location: Left arm Patient Position: Sitting BP Cuff Size: Large adult Pulse: 71 Resp: 20 Temp: 96.9 ??F (36.1 ??C) TempSrc: Oral SpO2: 99% Weight: 145 lb 3.2 oz (65.9 kg) Height: 4' 9 (1.448 m) Physical Exam Vitals reviewed. Exam conducted with a cigarette roller present. Constitutional: Appearance: Normal appearance. HENT: Head: Normocephalic and atraumatic. Cardiovascular: Rate and Rhythm: Normal rate and regular rhythm. Pulses: Normal pulses. Heart sounds: Normal heart sounds. Pulmonary: Effort: Pulmonary effort is normal. Breath sounds: Normal breath sounds. Genitourinary: General: Normal vulva. Vagina: Normal. Cervix: Friability present. Comments: Everted polyp/skin tag Skin: General: Skin is warm and dry. Neurological: General: No focal deficit present. Mental Status: She is alert and oriented to person, place, and time. Psychiatric: Mood and Affect: Mood normal. Behavior: Behavior normal. ASSESSMENT/PLAN Problem List Items Addressed This Visit Non-insulin dependent type 2 diabetes mellitus (CMS/HCC) Relevant Medications pravastatin (Pravachol) 40 MG tablet Other Relevant Orders POCT Glucose (Completed) POCT Hgb A1c (Completed) Other Visit Diagnoses Screening mammogram for breast cancer - Primary Relevant Orders BI Mammogram Screening Tomosynthesis Bilateral Screening for colon cancer Relevant Orders Cologuard?? colon cancer screening Screening for cervical cancer Relevant Orders ThinPrep Imaging Pap and HPV mRNA E6/E7 with Reflex to HPV 16,18/45 Follow Up: 4-6 months or sooner prn Allergies[2] Current Medications[3] Setswana Translation: Provided by [facility] staff member ELOISE Mead [1] Past Surgical History: Procedure Laterality Date PALATE SURGERY Cleft palate repair [2] No Known Allergies [3] Current Outpatient Medications: albuterol 108 (90 Base) MCG/ACT inhaler, Inhale 2 puffs every 4 (four) hours if needed for wheezing., Disp: 18 g, Rfl: 3 ascorbic acid (Vitamin C) 500 MG tablet, Take 1 tablet (500 mg) by mouth Once per day., Disp: 90 tablet, Rfl: 3 Blood Glucose Monitoring Suppl (ONE TOUCH ULTRA 2) w/Device kit, Please use to check BS as directed, Disp: 1 kit, Rfl: 0 cetirizine (ZyrTEC) 10 MG tablet, TAKE 1 TABLET BY MOUTH EVERY DAY, Disp: 90 tablet, Rfl: 1 Diclofenac Sodium 1 % gel, Apply thin layer by topical route (quantity as directed on package insert) to wrists 3 times daily as needed., Disp: 50 g, Rfl: 3 fenofibrate (Tricor) 48 MG tablet, Take 1 tablet (48 mg) by mouth Once per day., Disp: 30 tablet, Rfl: 11 glucose blood ([employer] Ultra) test strip, USE DIRECTED TO TEST BLOOD SUGAR TWICE DAILY, Disp: 100 each, Rfl: 11 Lancets (OneTouch Delica Plus Dqegdh80C) [facility], Apply 1 each topically 2 times daily., Disp: 100 each, Rfl: 11 lisinopril-hydroCHLOROthiazide 20-12.5 MG tablet, TAKE 1 TABLET BY MOUTH EVERY DAY, Disp: 90 tablet, Rfl: 3 melatonin 5 MG tablet, TAKE 2 TABLETS BY MOUTH EVERY DAY AT BEDTIME, Disp: 180 tablet, Rfl: 3 metFORMIN XR (Glucophage-XR) 500 MG 24 hr tablet, Take 2 tablets (1,000 mg) by mouth 2 times daily.Do not crush, chew, or split., Disp: 360 tablet, Rfl: 3 Polyethylene Glycol 3350 (PEG 3350) 17 GM/SCOOP powder, TAKE 17 GM MIXED IN 8 OUNCES OF WATER, COFFEE OR TEA ONCE DAILY, Disp: , Rfl: pravastatin (Pravachol) 40 MG tablet, Take 1 tablet (40 mg) by mouth Once per day., Disp: 90 tablet, Rfl: 3 Spacer/Aero-Holding Chambers (OptiChamber Elsa) misc, 1 each every 4 (four) hours if needed (asthma)., Disp: 1 each, Rfl: 0 triamcinolone (Kenalog) 0.1 % ointment, , Disp: , Rfl: documented in this encounter Plan of Treatment Upcoming Encounters Date Type Department Care Team (Late st Contact Info) Description 12/13/2025 10:00 AM EDT Office Visit [facility] OPT[facility] [address] [place], [place] [phone] Adilson, Lizy, OD [address] [place] [address] Scheduled Orders Name Type Priority Associated Diagnoses Order Schedule BI Mammogram Screening Tomosynthesis Bilateral Imaging Routine Screening mammogram for breast cancer Expected: 06/14/2025, Expires: 08/14/2026 Cologuard colon cancer screening Lab Routine Screening for colon cancer Ordered: 06/14/2025 ThinPrep Imaging Pap and HPV mRNA E6/E7 with Reflex to HPV 16,18/45 Pathology and Cytology Routine Screening for cervical cancer Expected: 06/14/2025 (Approximate), Expires: 06/14/2026 documented as of this encounter Procedures Procedure Name Priority Date/Time Associated Diagnosis Comments POCT GLYCATED HEMOGLOBIN, TOTAL Routine 06/14/2025 9:32 AM EDT Non-insulin dependent type 2 diabetes mellitus (CMS/HCC) POCT GLUCOSE Routine 06/14/2025 9:15 AM EDT Non-insulin dependent type 2 diabetes mellitus (CMS/HCC) documented in this encounter Results * (ABNORMAL) POCT Hgb A1c (06/14/2025 9:32 AM EDT) Hemoglobin A1C 7.5(A) 4.0 - 5.7 % QC Media Lot # [id number] Lot# Expiration Date 41,627 Blood 06/14/2025 9:32 AM EDT Digna Weber MD POINT OF CARE TEST ENTER/EDIT ORDERABLES Final Result * POCT Glucose (06/14/2025 9:15 AM EDT) Glucose Blood, POC 171 60 - 200 mg/dL QC Media Lot # [id number] Lot# Expiration Date 113,025 Blood Capillary blood specimen / Unknown 06/14/2025 9:15 AM EDT Digna Weber MD POINT OF CARE TEST ENTER/EDIT ORDERABLES Final Result documented in this encounter Visit Diagnoses Diagnosis Screening mammogram for breast cancer- Primary Non-insulin dependent type 2 diabetes mellitus (CMS/HCC) Type II or unspecified type diabetes mellitus without mention of complication, not stated as uncontrolled Screening for colon cancer Special screening for malignant neoplasms, colon Screening for cervical cancer Screening for malignant neoplasm of the cervix documented in this encounter Additional Health Concerns Assessment Noted Time PHQ-9 Depression Total Score: 2 06/14/20 25 10:31 AM EDT documented as of this encounter Care Teams Conditioner Tender Relationship Specialty Start Date End Date Digna Weber MD [address] [place] [address] PCP - General Family Medicine 07/05/23 documented as of this encounter
--- OUTSIDE RECORDS SUMMARY | 2025-06-14 13:00 | XMS_ITS | Encounter Summary ---
Author Organization [employer] Address [address] [facility] 7t [place] [address] Care Team Providers Care Ms Sql Dba Name Role Phone Digna Weber MD Primary Care Provider [phone] Reason for Visit * Reason Comments Diabetic Eye Exam Encounter Details Date Type Department Care Team (Late st Contact Info) Description 06/14/2025 1:00 PM EDT Office Visit [facility] OPTOMETRY [address] [place] [address] Adilson, Lizy, OD [address] [place] [address] Diabetes type 2, no ocular involvement (CMS/HCC) (Primary Dx); Open angle with borderline findings, low risk; Dry eye; Combined forms of age-related cataract of both eyes; Presbyopia Social History Tobacco Use Types Packs/Day Years [...] your housing situation today? I have jocelin khanh 12/07/[address] you li [...] AM EDT documented as of this encounter Functional Status * Over the past 2 weeks, how often have you been bothered by any of the following problems? Question Answer Date of Assessment Author Patient Health Questionnaire -2 Score 0 06/14/2025 10:31 AM EDT [place] * Little interest or pleasure in doing things Answer Date of Assessment Author Not at all 06/14/2025 10:31 AM EDT [place] Graves [place] * Feeling down, depressed, or hopeless Answer Date of Assessment Author Not at all 06/14/2025 10:31 AM EDT oBston Graves [place] * Trouble falling or staying asleep, or sleeping too much Answer Date of Assessment Author More than half the days 06/14/2025 10:31 AM EDT [place] Graves [place] * Feeling tired or having little energy Answer Date of Assessment Author Not at all 06/14/2025 10:31 AM EDT [place] Graves [place] * Poor appetite or overeating Answer Date of Assessment Author Not at all 06/14/2025 10:31 AM EDT [place] Graves [place] * Feeling bad about yourself - or that you are a failure or have let yourself or your family down Answer Date of Assessment Author Not at all 06/14/2025 10:31 AM EDT [place] Graves [place] * Trouble concentrating on things, such as reading the newspaper or watching television Answer Date of Assessment Author Not at all 06/14/2025 10:31 AM EDT [place] Graves [place] * Moving or speaking so slowly that other people could have noticed? Or the opposite - being so fidgety or restless that you have been moving around a lot more than usual. Answer Date of Assessment Author Not at all 06/14/2025 10:31 AM EDT [place] Graves [place] * Thoughts that you would be [...] as of this encounter Progress Notes * Lizy De Anda, CARRILLO - 06/14/2025 1:00 PM EDT Eye Care Progress Note Patient ID: Genoveva Núñez is a 64 y.o. female. Chief Complaint Diabetic Eye Exam HPI Here for a diabetic eye exam. She has Type II NIDDM. Her last HbA1c was 7.5% today. Patient denies new vision or ocular complaints. Her last eye exam was here on 03/12/2024. Last edited by Lizy De Anda, OD on 06/14/2025 1:05 PM. Current Medications[1] Medical History[2] Surgical History[3] Family History[4] Social History Socioeconomic History Marital status: Spouse name: Not on file Number of children: Not on file Years of education: Not on file Highest education level: Not on file Occupational History Not on file Tobacco Use Smoking status: Never Passive exposure: Never Smokeless tobacco: Never Vaping Use Vaping status: Never Used Substance and Sexual Activity Alcohol use: Never Drug use: Never Sexual activity: Defer Other Topics Concern Not on file Social History Narrative Retired Likes to exercise, chasidy Has five grandchildren in the area Social Drivers of Health Food Insecurity: Low Risk (12/07/2024) Food Insecurity Within the past 12 months, you worried that your food would run out before you got money to buy more:: Never True Within the past 12 months,the food you bought just didn't last and you didn't have enough money to get more: : Never True Transportation Needs: Low Risk (12/07/2024) Transportation In the past 12 months, has lack of transportation kept you from medical appts, meetings, work or from getting things needed for daily living? : No Intimate Partner Violence: Not on file Housing Stability: Low Risk (12/07/2024) Housing Stability What is your housing situation today?: I have housing Think about the place you live. Do you have problems with any of the following? : None of the above Allergies[5] ROS Negative for: Constitutional, Gastrointestinal, Neurological, Skin, Genitourinary, Musculoskeletal,HENT, Endocrine, Cardiovascular, Eyes, Respiratory, Psychiatric, Allergic/Imm, Heme/Lymph Last edited by Lizy De Anda, CARRILLO on 06/14/2025 12:56 PM. Base Eye Exam Visual Acuity (Snellen - Linear) Right Left Dist cc 20/25 20/25 Last rx in [facility] ([facility] , 1:08 PM) Right Left Pressure 18 16 Pachymetry (04/18/2024) Right Left Thickness 521 507 Pupils Pupils APD Right PERRL None Left PERRL None Visual Cardoza (Counting fingers) Left Right Full Full Extraocular Movement Right Left Full Full Neuro/Psych Oriented x3: Yes Mood/Affect: Normal Dilation Both eyes: 1.0% Tropicamide @ 1:09 PM Slit Lamp and Fundus Exam External Exam Right Left External Normal Normal Slit Lamp Exam Right Left Lids/Lashes Normal Normal Conjunctiva/Sclera Pinguecula N Pinguecula N Cornea 1-2+ guttata 1-2+ guttata Anterior Chamber Deep and quiet Deep and quiet Iris Flat, no NVE Flat, no NVE Lens 1-2+ NS, 1+ cortical 1-2+ NS, 1+ cortical Fundus Exam Right Left Vitreous Clear Clear Disc [place] and Distinct, no NVD [place] and Distinct, inferior thinning, no NVD C/D Ratio Vertical 0.65 0.70 C/D Ratio Horizontal 0.65 0.70 Macula Flat and Intact, no CSME Flat and Intact, no CSME Vessels Normal Normal Periphery No holes/breaks/tears 360 degrees, no NVE No holes/breaks/tears 360 degrees, no NVE Refraction Wearing Rx Sphere Cylinder [place] Add Right +2.75 -0.50 105 +2.50 Left +2.00 Sphere +2.50 Manifest Refraction Sphere Cylinder [place] Dist VA Add Right +3.00 -0.75 107 20/20 +2.50 Left +2.25 -0.50 105 20/20 +2.50 Dist VA Both: 20/20 Near VA Both: 20/20 Final Rx Sphere Cylinder [place] Dist VA Add Right +3.00 -0.75 107 20/20 +2.50 Left +2.25 -0.50 105 20/20 +2.50 Expiration Date: 06/14/2026 Assessment/plan: Diagnoses and all orders for this visit: Diabetes type 2, 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 The patient was educated on the exam findings. The patient was educated to continue controlling blood glucose levels through diet, exercise and medication. The patient was educated on potential complications of diabetic retinopathy, including blindness, if left untreated. The patient was educated on the importance of an annual diabetic eye exam to monitor for diabetic retinopathy. A summary of today's dilated eye exam results will be communicated to the patient's PCP through the shared patient problem list in [facility].Will monitor in 1 year. Open angle with borderline findings, low risk The patient has large optic neve cupping in both eyes with borderline intraocular pressure in both eyes. Her OCT showed a decrease in average RNFL in both eyes compared to 02/2024. The patient was educated she is a glaucoma suspect in both eyes. She was educated on the need for regular exams to monitor her optic nerve health as glaucoma is a condition that causes permanent vision loss. She was educated that we will have her return in 6 months for an updated visual field test. Last DFE: 06/14/2025 Last Gonio: 06/09/2022 Pachymetry: 521/507 (04/18/2024) Last Photos: 06/14/2025 Last Optic Nerve OCT: 06/14/2025 Last Visual Field: 05/09/2023 Max intraocular pressure (IOP): 22/21 Today's intraocular pressure (IOP): 18/16 Target intraocular pressure (IOP): N/A Treatment: N/A TODAY'S ORDERS: - OCT, Optic Nerve - OU - Both Eyes 3. Dry eye Patient educated on dry eye syndrome. Dry eye syndrome is caused by a chronic lack of sufficient lubrication and moisture on the surface of the eye. Consequences of dry eyes range from subtle but constant eye irritation to significant inflammation and even scarring of the front surface of the eye. S ymptoms of dry eye syndrome include: a burning sensation, itching, an aching sensation, heavy feeling eyes, fatigued eyes, sore eyes, dryness sensation, redness, photophobia, and blurred vision. She was given a handout of OTC artificial tears to purchase and use 3 times per day in both eyes. Will monitor at her next exam. 4. Combined forms of age-related cataract of both eyes Not significant enough to warrant treatment. The patient was educated on the symptoms of cataracts including blur and glare sensitivity. They were educated on the progressive nature of cataracts and of the potential need for treatment in the future. No treatment is recommended at this time. Will monitor at their next complete eye exam. 5. Presbyopia Glasses prescription updated and given. Will monitor at the patient's next full eye exam. Lizy De Anda, OD 06/14/2025, 2:26 PM Erecting Engineer Source: ___ None _x__ Bilingual Staff: Keesha Barone ___ Qualified Staff Mysql Database Administrator ___ Telephone Erecting Engineer; ID# ___ Erecting Engineer brought by patient (family member, friend, VEGETABLE TRIMMER, etc) ___ In person program manager transportation ___ Ipad Erecting Engineer; ID#: Language Spoken During Exam: ___Spanish [1] Current Outpatient Medications Medication Sig Dispense Refill albuterol 108 (90 Base) MCG/ACT inhaler Inhale 2 puffs every 4 (four) hours if needed for wheezing.18 g 3 ascorbic acid (Vitamin C) 500 MG tablet Take 1 tablet (500 mg) by mouth Once per day. 90 tablet 3 Blood Glucose Monitoring Suppl (ONE TOUCH ULTRA 2) w/Device kit Please use to check BS as directed 1 kit 0 cetirizine (ZyrTEC) 10 MG tablet TAKE 1 TABLET BY MOUTH EVERY DAY 90 tablet 1 Diclofenac Sodium 1 % gel Apply thin layer by topical route (quantity as directed on package insert) to wrists 3 times daily as needed. 50 g 3 fenofibrate (Tricor) 48 MG tablet Take 1 tablet (48 mg) by mouth Once per day. 30 tablet 11 glucose blood (OneTouch Ultra) test strip USE DIRECTED TO TEST BLOOD SUGAR TWICE DAILY 100 each 11 Lancets (Drug Response DxTouch Delica Plus [id number]) misc Apply 1 each topically 2 times daily. 100 each 11 lisinopril-hydroCHLOROthiazide 20-12.5 MG tablet TAKE 1 TABLET BY MOUTH EVERY DAY 90 tablet 3 melatonin 5 MG tablet TAKE 2 TABLETS BY MOUTH EVERY DAY AT BEDTIME 180 tablet 3 metFORMIN XR (Glucophage-XR) 500 MG 24 hr tablet Take 2 tablets (1,000 mg) by mouth 2 times daily. Do not crush, chew, or split. 360 tablet 3 Polyethylene Glycol 3350 (PEG 3350) 17 GM/SCOOP powder TAKE 17 GM MIXED IN 8 OUNCES OF WATER, COFFEE OR TEA ONCE DAILY pravastatin (Pravachol) 40 MG tablet Take 1 tablet (40 mg) by mouth Once per day. 90 tablet 3 Spacer/Aero-Holding Chambers (OptiChamber Elsa) misc 1 each every 4 (four) hours if needed (asthma). 1 each 0 triamcinolone (Kenalog) 0.1 % ointment No current facility-administered medications for this visit. [2] Past Medical History: Diagnosis Date Angina pectoris (CMS/HCC) Arthritis Diabetes mellitus (CMS/HCC) Glaucoma suspect HLD (hyperlipidemia) Hypertension [3] Past Surgical History: Procedure Laterality Date PALATE SURGERY Cleft palate repair [4] Family History Problem Relation Name Age of Onset Glaucoma Mother Hypertension Mother Cervical cancer Mother Throat cancer Father Colon cancer Sister [5] No Known Allergies documented in this encounter Plan of Treatment Upcoming Encounters Date Type Department Care Team (Late st Contact Info) Description 12/13/2025 10:00 AM EDT Office Visit [facility] OPTOMETRY [address] [place] [address] Lizy De Anda, OD [address] [place] [address] documented as of this encounter Procedures Procedure Name Priority Date/Time Associated Diagnosis Comments OCT, OPTIC NERVE - OU - BOTH EYES Routine 06/14/2025 2:09 PM EDT Open angle with borderline findings, low risk documented in this encounter Results * OCT, Optic Nerve - OU - Both Eyes (06/14/2025 2:09 PM EDT) Lizy Brooke, OD - 06/14/2025 2:09 PM EDT Images from the original result were not included. OCT OPTIC NERVE INTERPRETATION Optical Coherence Tomography Interpretation Report Test Details: Measurements: OD OS C/D Horizontal 0.82 0.81 C/D Vertical 0.80 0.86 Disc area 2.75 mm 2 2.77 mm 2 RNFL Average 88 microns 85 microns Test findings: OD: Borderline RNFL loss in inferior and nasal quadrants. Normal RNFL thickness in superior and temporal quadrants OS: Borderline RNFL loss in inferior and nasal quadrants. Normal RNFL thickness in superior and temporal quadrants Impression and Plan: Right eye: 4 micron decrease in average RNFL thickness compared to 02/2024. Left eye: 4 micron decrease in average RNFL thickness compared to 02/2024. Inferior thinning on fundus exam with inferior thinning on OCT. Will have patient return in 6 months for an updated visual field test. Lizy De Anda OD OPHTH TOMOGRAPHY Edited Resul t - Final documented in this encounter Visit Diagnoses Diagnosis Diabetes type 2, no ocular involvement (CMS/[facility])- Primary Open angle with borderline findings, low risk Dry eye Combined forms of age-related cataract of both eyes Presbyopia documented in this encounter Additional Health Concerns Assessment Noted Time PHQ-9 Depression Total Score: 2 06/14/20 25 10:31 AM EDT documented as of this encounter Care Teams Ms Sql Dba Relationship Specialty Start Date End Date Digna Weber MD [address] [place] [address] PCP - General Family Medicine 07/05/23 documented as of this encounter
--- OUTSIDE RECORDS SUMMARY | 2025-06-14 16:13 | XMS_ITS | Encounter Summary ---
Author Organization [employer] Address [address] [facility] 7t [place] [address] Care Team Providers Care Search Marketing Coordinator Name Role Phone iDgna Weber MD Primary Care Provider [phone] Reason for Visit * Reason Onset Date Comments Chart Prep 06/13/2025 Encounter Details Date Type Department Care Team (Late st Contact Info) Description 06/13/2025 Telephone [facility] MEDICINE [address] [place], [place] [phone] Digna Weber MD [address] [place], [place] [phone] Chart Prep Social History Tobacco Use Types Packs/Day Years [...] AM EDT documented as of this encounter Miscellaneous Notes * Telephone Encounter - Anamika Osborne MA - 06/13/2025 9:52 AM EDT Chart Prep Labs: done Images: not applicable Referrals: not applicable Vaccines due: Covid, Flu, and RSV Screenings: colonoscopy, pap smear, and foot exam Overdue care gaps: A1c, Glucose, SBIRT, PHQ-9, and KODY-7 documented in this encounter Plan of Treatment Upcoming Encounters Date Type Department Care Team (Late st Contact Info) Description 12/13/2025 10:00 AM EDT Office Visit [facility] OPTOMETRY [address] [place] [address] Adilson, Lizy, OD [address] [place] [address] documented as of this encounter Visit Diagnoses Not on filedocumented in this encounter Care Teams Search Marketing Coordinator Relationship Specialty Start Date End Date Digna Weber MD [address] [place] [address] PCP - General Family Medicine 07/05/23 documented as of this encounter
--- OUTSIDE RECORDS SUMMARY | 2025-06-14 16:13 | XMS_ITS | Encounter Summary ---
Author Organization [employer] Address [address] [facility] 7[address] [place] [address] Care Team Providers Care Handbag Stitcher Name Role Phone Digna Weber MD Primary Care Provider [phone] Reason for Visit * Reason Comments Med Refill Encounter Details Date Type Department Care Team ([facility] st Contact Info) Description 02/04/2025 Refill [facility] MEDICINE [address] [place], [place] [phone] Digna Weber MD [address] [place], [place] [phone] Social History Tobacco Use Types Packs/Day Years [...] as of this encounter Plan of Treatment Upcoming Encounters Date Type Department Care Team (Late st Contact Info) Description 12/13/2025 10:00 AM EDT Office Visit [facility] OPTOMETRY [address] [place] [address] Lizy De Anda, OD [address] [place] [address] documented as of this encounter Visit Diagnoses Not on filedocumented in this encounter Care Teams Handbag Stitcher Relationship Specialty Start Date End Date Digna Weber MD [address] [place] [address] PCP - General Family Medicine 07/05/23 documented as of this encounter
--- OUTSIDE RECORDS SUMMARY | 2025-06-14 16:13 | XMS_ITS | Encounter Summary ---
Author Organization [employer] Address [address] [facility] [address] [place] [address] Care Team Providers Care Device Repair Technician Name Role Phone Digna Weber MD Primary Care Provider [phone] Encounter Details Date Type Department Care Team ([facility] st Contact Info) Description 02/28/2025 Orders Only [facility] MEDICINE [address] [place], [place] [phone] Digna Weber MD [address] [place], [place] [phone] Social History Tobacco Use Types Packs/Day Years [...] Description 12/13/2025 10:00 AM EDT Office Visit [facility] OPTOMETRY [address] [place] [address] Lizy De Anda, OD [address] [place] [address] documented as of this encounter Visit Diagnoses Not on filedocumented in this encounter Care Teams Device Repair Technician Relationship Specialty Start Date End Date Digna Weber MD [address] [place] [address] PCP - General Family Medicine 07/05/23 documented as of this encounter
--- OUTSIDE RECORDS SUMMARY | 2025-06-14 16:13 | XMS_ITS | Encounter Summary ---
Author Organization [employer] Address [address] [facility] [address] [place] [address] Care Team Providers Care Police Records Clerk Name Role Phone Digna Weber MD Primary Care Provider [phone] Reason for Visit * Reason Comments Med Refill Encounter Details Date Type Department Care Team ([facility] st Contact Info) Description 06/12/2025 Refill [facility] MEDICINE [address] [place], [place] [phone] Digna Weber MD [address] [place], [place] [phone] Primary hypertension Social History Tobacco Use Types Packs/Day Years [...] Description 12/13/2025 10:00 AM EDT Office Visit [facility] OPTOMETRY [address] [place] [address] Lizy De Anda, OD [address] [place] [address] documented as of this encounter Visit Diagnoses Diagnosis Primary hypertension Unspecified essential hypertension documented in this encounter Care Teams Police Records Clerk Relationship Specialty Start Date End Date Digna Weber MD [address] [place] [address] PCP - General Family Medicine 07/05/23 documented as of this encounter
--- OUTSIDE RECORDS SUMMARY | 2025-06-14 16:13 | XMS_ITS | Encounter Summary ---
Author Organization [employer] Address [address] [facility] [address] [place] [address] Care Team Providers Care Copy Editor Name Role Phone Digna Weber MD Primary Care Provider [phone] Encounter Details Date Type Department Care Team (Latest Contact Info) Description 06/14/2025 Travel Social History Tobacco Use Types Packs/Day Years [...] [place] documented as of this encounter Plan of Treatment Upcoming Encounters Date Type Department Care Team (Late st Contact Info) Description 12/13/2025 10:00 AM EDT Office Visit [facility] OPTOMETRY [address] [place] [address] AdilsonLizy bennett, OD [address] [place] [address] documented as of this encounter Visit Diagnoses Not on filedocumented in this encounter Additional Health Concerns Assessment Noted Time PHQ-9 Depression Total Score: 2 06/14/20 25 10:31 AM EDT documented as of this encounter Care Teams Copy Editor Relationship Specialty Start Date End Date Digna Weber MD [address] [place] [address] PCP - General Family Medicine 07/05/23 documented as of this encounter
--- OUTSIDE RECORDS SUMMARY | 2025-06-14 16:14 | XMS_ITS | Clinical Summary ---
Author Organization [facility] Address [address] [place] [address] Care Team Providers Care Addictions Recovery Specialist Name Role Phone Unavailable Primary Care Provider Unavailabl e Allergies No known active allergies Medications Medication Sig Dispensed Refills Start Date End Date Status lisinopril-hydrochloro thiazide (PRINZIDE,ZESTORETIC) 20-12.5 MG per tablet 0 02/21/2019 Act percy metformin (GLUCOPHAGE-XR) 500 MG 24 hr tablet 0 02/15/2019 Active pravastatin (PRAVACHOL) 40 MG tablet 0 01/04/2019 Active loratadine (CLARITIN) 10 MG tablet 0 02/26/2019 Active tacrolimus (PROTOPIC) 0.1 % ointment Apply to affected are BID 100 g 2 03/22/2019 Active folic acid (FOLVITE) 1 MG tablet Take 1 Tab by mouth daily. 30 Tab 12 04/13/2019 Active methotrexate 2.5 MG tablet Take 6 Tabs by mouth once a week for 30 days. 24 Tab 2 05/14/2019 Active triamcinolone (KENALOG) 0.1 % ointment Apply a small amount to area BID x 2 weeks 454 g 1 05/14/2019 Active ketoconazole (NIZORAL) 2 % cream Apply 2 g topically daily for 14 days. 15 g 3 02/25/2022 Active silver sulfADIAZINE (SSD) 1 % cream Apply small amount to the wound once daily before dressing with bandaid 50 g 1 11/07/2023 Active Active Problems Problem Noted Date Hypertension 03/06/2019 Non-insulin dependent type 2 diabetes me llitus 03/06/2019 Hypercholesterolemia 03/06/2019 Social History Tobacco Use Types Packs/Day Years Used Date Smoking Tobacco: Never Smokeless Tobacco: Never Tobacco Cessation:Counseling Given: Not Answered Sex Assigned at Date Recorded Not on file Last Filed Vital Signs Vital Sign Reading Time Taken Comments Blood Pressure 130/88 05/14/2019 3:19 PM EDT Pulse 80 05/14/2019 3:19 PM EDT Temperature 37.1 C (98.8 F) 04/02/2019 1:13 PM EDT Respiratory Rate 14 03/06/2019 10:38 AM EDT Oxygen Saturation - - Inhaled Oxygen Concentration - - Weight 63.5 kg (140 lb) 11/28/2023 1:14 PM EST Height 152.4 cm (5') 11/07/2023 1:57 PM EST Body Mass Index 27.34 11/07/2023 1:57 PM EST Plan of Treatment Health Maintenance Due Date Last Done Comments Covid-19 Vaccine (#1) 03/10/1960 DEPRESSION SCREEN 1971 DIABETES/HEART DISEASE: PHOEBE AL CHOLESTEROL (LDL) 1977 DIABETES: ANNUAL EYE EXAM 1977 DIABETES: ANNUAL FOOT EXAM 1977 DIABETES: ANNUAL URINE PROTE IN TEST (MICROALBUMIN) 1977 DIABETES: BLOOD SUGAR CONTRO L TEST (HGBA1C) 1977 HEPATITIS C SCREENING 1977 CERVICAL CANCER SCREENING 1980 MAMMOGRAM 1999 COLON CANCER SCREENING 2009 DTAP/TDAP/TD (2 - Td or Tdap) 07/23/2020 07/23/2010 BONE DENSITY SCREENING 2024 PNEUMOCOCCAL VACCINE (2 - PCV) 2024 04/30/2009 BMI CHECK/ADVISE 09/26/2024 03/22/2019, 03/06/2019 INFLUENZA (#1) 2025 06/12/2015 SHINGLES VACCINE Completed 03/09/2022, 01/01/2022
--- OUTSIDE RECORDS SUMMARY | 2025-06-14 16:14 | XMS_ITS | Encounter Summary ---
Author Organization [facility] Address [address] [place] [address] Care Team Providers Care Artist Relationship Manager Name Role Phone Community, Pcp Primary Care Provider Unavailabl e Encounter Details Date Type Department Care Team Description 01/12/2022 SCAN [facility] [address] [place] [address] [place] [phone] Kelechi Abbott DPM Social History Tobacco Use Types Packs/Day Years Used Date Smoking Tobacco: Never Smokeless Tobacco: Never Sex Assigned at Date Recorded Not on file documented as of this encounter Plan of Treatment Not on file documented as of this encounter Visit Diagnoses Not on filedocumented in this encounter Care Teams Artist Relationship Manager Relationship Specialty Start Date End Date Community, Pcp PCP - General Internal Medicine 06/21/14 07/25/23 documented as of this encounter
--- OUTSIDE RECORDS SUMMARY | 2025-06-14 16:14 | XMS_ITS | Clinical Summary ---
Author Organization [employer] Address [address] [place] [address] 7[address] [place] [address] Care Team Providers Care Protocol Officer Name Role Phone Digna Weber MD Primary Care Provider [phone] Allergies No known active allergies Medications triamcinolone (Kenalog) 0.1 % ointment 01/05/20 23 Active melatonin 5 MG tabletIndicatio ns:Sleep disturbance TAKE 2 TABLETS BY MOUTH EVERY DAY AT BEDTIME 180 tablet 3 05/25/20 24 Active metFORMIN XR (Glucophage-XR) 500 MG 24 hr tabletIndicatio ns:Non-insulin dependent type 2 diabetes mellitus (CMS/HCC) Take 2 tablets (1,000 mg) by mouth 2 times daily. Do not crush, chew, or split. 360 tablet 3 05/25/20 24 Active Blood Glucose Monitoring Suppl (ONE TOUCH [...] 90 tablet 3 12/18/19 25 026 Active Polyethylene Glycol 3350 (PEG 3350) 17 GM/SCOOP powder TAKE 17 GM MIXED IN 8 OUNCES OF WATER, COFFEE OR TEA ONCE DAILY 09/21/20 24 Active albuterol 108 (90 Base) MCG/ACT inhalerIndicati ons:Mild intermittent asthma with acute exacerbation Inhale 2 puffs every 4 (four) hours if needed for wheezing. 18 g 3 01/17/20 25 Active Spacer/Aero-Hol ding Chambers (OptiChamber Elsa) misc 1 each every 4 (four) hours if needed (asthma). 1 each 01/17/20 25 Active Lancets (Win Win SlotsTouch Delica Plus [id number]) miscIndications :Non-insulin dependent type 2 diabetes mellitus (CMS/HCC) Apply 1 each topically 2 times daily. 100 each 02/06/20 25 Active fenofibrate (Tricor) 48 MG tablet Take 1 tablet (48 mg) by mouth Once per day. 30 tablet 02/29/20 25 026 Active glucose blood (Win Win SlotsTouch Ultra) test stripIndication s:Non-insulin dependent type 2 diabetes mellitus (CMS/HCC) USE DIRECTED TO TEST BLOOD SUGAR TWICE DAILY 100 each 03/27/20 25 Active cetirizine (ZyrTEC) 10 MG tabletIndicatio ns:Eosinophil count raised TAKE 1 TABLET BY MOUTH EVERY DAY 90 tablet 1 05/29/20 25 Active lisinopril-hydr oCHLOROthiazide 20-12.5 MG tabletIndicatio ns:Primary hypertension TAKE 1 TABLET BY MOUTH EVERY DAY 90 tablet 3 06/12/20 25 Active pravastatin (Pravachol) 40 MG tabletIndicatio ns:Non-insulin dependent type 2 diabetes mellitus (CMS/HCC) Take 1 tablet (40 mg) by mouth Once per day. 90 tablet 3 06/14/20 25 026 Active cetirizine (ZyrTEC) 10 MG tabletIndicatio ns:Eosinophil count raised Take 1 tablet (10 mg) by mouth Once per day. 90 tablet 3 05/25/20 24 025 Discontinued lisinopril-hydr oCHLOROthiazide 20-12.5 MG tabletIndicatio ns:Primary hypertension TAKE 1 TABLET BY MOUTH DAILY 90 tablet 3 05/25/20 24 025 Discontinued pravastatin (Pravachol) 40 MG tabletIndicatio ns:Non-insulin dependent type 2 diabetes mellitus (CMS/HCC) Take 1 tablet (40 mg) by mouth Once per day. 90 tablet 3 05/25/20 24 025 Discontinued(Re order (will not trigger notification to Pharmacy)) azithromycin (Zithromax) 250 MG tabletIndicatio ns:Mild persistent asthma without complication 08/24/20 025 Discontinued(Th erapy completed) senna (Senokot) 8.6 MG tablet Take 1 tablet by mouth if needed in the morning and at bedtime for constipation . 06/21/20 025 Discontinued(Th erapy completed) predniSONE (Deltasone) 20 MG tabletIndicatio ns:Mild intermittent asthma with acute exacerbation Take 2 tablets (40 mg) by mouth Once per day. 10 tablet 01/17/20 025 Discontinued(Th erapy completed) Active Problems Problem Noted Date Diagnosed Date Periodontal disease 09/05/2024 Class 1 obesity 08/26/2023 08/26/2023 Cystocele, midline 08/26/2023 08/26/2023 Diabetic neuropathy 08/26/2023 08/26/2023 Glaucoma 08/26/2023 08/26/2023 Insomnia 08/26/2023 08/26/2023 Rectocele 08/26/2023 08/26/2023 Arthritis of right ankle 10/20/2022 Overview (10/20/2022): Care managed by Lorena Jenkins. Last appt 10/20/22 Followup 9 weeks Diabetic [...] Onychomycosis 07/11/2015 Overview (08/26/2023): Care managed by Lorena Jenkins. Last appt 10/20/22 Followup 9 weeks Eosinophil [...] Encounters Date Type Department Care Team Description 06/14/2025 1:00 PM EDT Office Visit [facility] OPTOMETRY [address] [place] [address] Adilson, Lizy, OD Diabetes type 2, no ocular involvement ([facility]) (Primary Dx); Open angle with borderline findings, low risk; Dry eye; Combined forms of age-related cataract of both eyes; Presbyopia 06/14/2025 9:30 AM EDT Office Visit [facility] MEDICINE [address] [place] [address] Digna Weber MD Screening mammogram for breast cancer (Primary Dx); Non-insulin dependent type 2 diabetes mellitus ([facility]); Screening for colon cancer; Screening for cervical cancer 06/14/2025 Travel 06/13/2025 Telephone [facility] [address] [place] [address] Digna Weber MD Chart Prep 06/12/2025 Refill [facility] [address] [place] [address] Digna Weber MD Primary hypertension 06/06/2025 Patient Outreach [facility] [address] [place] [address] Dgina Weber MD Pre-visit Planning (SDOH screening completed on 12/07/2024) 05/29/2025 Refill [facility] [address] [place] [address] Digna Weber MD Eosinophil count raised 03/26/2025 Refill [facility] [address] [place] [address] Digna Weber MD Non-insulin dependent type 2 diabetes mellitus ([facility]) from Last 3 Months Immunizations Immunization Administration Dates Next Due Hep B, adult [...] Mass Index 31.42 06/14/2025 9:07 AM EDT Plan of Treatment Upcoming Encounters Date Type Department Care Team (Late st Contact Info) Description 12/13/2025 10:00 AM EDT Office Visit [facility] OPTOMETRY [address] [place] [address] Adilson, Lizy, OD [address] [facility] [place] [address] Health Maintenance Due Date Last Done Comments CT Colonography 1959 Colonoscopy 1960 Colorectal Cancer Screening 1960 Dental Prophylaxis 1959 FIT DNA/Cologuard 1959 FIT 1959 FOBT 1959 Sigmoidoscopy 1959 RSV Patients and Patients Aged 60 years or older (1 - Risk 60-74 years 1-dose series) 2019 Dental Oral Exam 04/15/2023 10/15/2022 Dental X-Ray: Bitewings 10/16/2023 10/15/2022 Cervical Cancer Screening 03/23/2025 HPV/Cotest 03/23/2025 03/23/2022, 0504/2021, 09/13/2018, Additional history exists Pap Smear 03/23/2025 03/23/2022, 02/10/2021 Mammogram 04/22/2025 04/22/2023, 03/27, 03/22/2022, Additional history exists COVID-19 Vaccine ( season) 2025 01/04/2022, 08/04/2021, 01/05/2021 Influenza Vaccine (#1) 2025 , 08/04/2021, 07/05/2018, Additional history exists Diabetes: Hemoglobin A1C 09/13/2025 025, 12/17/2024, 05/25/2024, Additional history exists Dental X-Ray: Full Mouth 10/16/2025 10/15/2022 SDOH Screening 12/07/2025 12/07/2024 Diabetes: Urine Protein Screening 01/16/2026 01/16/2025, 08/26/2023, 04/12/2022, Additional history exists Lipid Panel 01/16/2026 01/16/2025, 1209/2022, 04/12/2022, Additional history exists Alcohol/Substance Use Screening 06/14/2026 06/14/2025 Depression Screening 06/14/2026 06/14/2025, 06/14/20 25 Diabetes: Foot Exam 06/14/2026 06/14/2025, 05/25/2024, 05/25/2024, Additional history exists Tobacco Screening 06/14/2026 06/14/2025 Eye Exam 06/14/2027 06/14/2025, 05/27, 06/14/2025, Additional history exists DTaP/Tdap/Td Vaccines (3 - [...] patient's age to complete this topic Meningococcal B Vaccine Aged Out No l onger eligible based on patient's age to complete [...] Open angle with borderline findings, low risk POCT GLYCATED HEMOGLOBIN, TOTAL Routine 06/14/2025 9:32 AM EDT Non-insulin dependent type 2 diabetes mellitus (CMS/HCC) POCT GLUCOSE Routine 06/14/2025 9:15 AM EDT Non-insulin dependent type 2 diabetes mellitus (CMS/HCC) ALBUMIN, RANDOM URINE W/CREATININE Routine 01/16/2025 10:26 AM EDT Non-insulin dependent type 2 diabetes mellitus (CMS/HCC) LIPID PANEL, STANDARD Routine 01/16/2025 10:26 AM EDT Non-insulin dependent type 2 diabetes mellitus (CMS/HCC) BI MAMMOGRAM [...] Recently Relevant to Health Maintenance Results * OCT, Optic Nerve - OU [...] OPHTH TOMOGRAPHY Edited Resul t - Final * (ABNORMAL) POCT Hgb A1c (06/14/2025 9:32 [...] specimen / Unknown 06/14/2025 9:15 AM EDT Result [facility] Digna Weber MD POINT OF CARE TEST ENTER/EDIT ORDERABLES Final Result * Albumin, Random Urine W/Creatinine (01/16/2025 10:26 AM EDT) Creatinine, Urine 52.21 mg/dL [facility] Microalbumin Urine <5.0 mg/L [facility] Microalbum Creatinine Ratio Ur TNP <30 ug/mg cr [facility] Comment:Unable to calculate albumin/creatinine ratio due to lowmicroalbumin or creatinine result. Urine (Urine, Random) 01/16/2025 10:26 AM EDT 01/16/2025 11:22 AM EDT us Digna Weber MD LAB URINE ORDERABLES Final Res ult [facility] [address] [place] [address] [phone] * (ABNORMAL) Lipid Panel, Standard (01/16/2025 10:26 AM EDT) Triglycerides 335(H) <150 mg/dL [facility] Comment:Desirable Triglyceri de: less than 150 mg/dLBorderline High Triglyceride 150-199 mg/dLHigh Triglyceride: 200-499 mg/dLVery High Triglyceride: greater than or equal to 5OO mg/dL Cholesterol 172 <200 mg/dL [facility] Comment:Desirable Cholestero l: less than 200 mg/dLBorderline High Cholesterol: 200-239 mg/dLHigh Cholesterol: greater than 239 mg/dL LDL Cholesterol Calculated 59 <100 mg/dL [facility] Comment:Desirable LDL: less than 100 mg/dLNear Optimal/Above Optimal LDL: 110- 129 mg/dLBorderline High LDL: 130-159 mg/dLHigh LDL: 160-189 mg/dLVery High LDL: greater than or equal to 190 mg/dL HDL Cholesterol 46 >40 mg/dL [facility] Comment:Desirable HDL: great er than 40 mg/dL Note: This HDL assay may give artificially low results in patients with liver disease. Blood Venous blood specimen / Unknown 01/16/2025 10:26 AM EDT 01/16/2025 11:27 AM EDT us Digna Weber MD LAB BLOOD ORDERABLES Final Res ult [facility] [address] [place] [address] [phone] * BI Mammogram Screening Tomosynthesis Bilateral (04/22/2023 4:13 PM EDT) Anatomical Region Laterality Modality Breast Bilateral Mammography 04/22/2023 4:13 PM EDT Narrative 05/10/2023 10:15 PM EDT [address] [place] [address] Mammography Report Signed Patient: Genoveva Núñez MR#: [id number] 52 : 1960 Acct:[id number] Age/Sex: 62 / F ADM Date: 04/22/23 Loc: HO.MAMMO Attending Dr: Bri Lynne DO Ordering Physician: Bri Lynne DO Results: Date of Service: 04/22/23 Follow Up: Procedure(s): MM tomosynthesis screening BI Accession Number(s): [id number] cc: Bri Lynne DO EXAMINATION: MM SCREENING [...] signed by Shelbie Guzman MD in OV> 05/10/232211 DD/ 1613 TD/TT: Spot Cleaner: Procedure Note Donotuseinterpreter, Image - 05/10/2023 [facility] [address] [place] [address] Mammography Report Signed Patient: Genoveva NúñezMR#: [id number] [birth year] : 9Acct:[id number] Age/Sex: 62 / FADM Date: 04/22/23 Loc: HO.MAMMO Attending Dr: Bri Lynne DO Ordering Physician: Bri Lynneults: Date of Service: 04/22/23Follow Up: Procedure(s): MM tomosynthesis screening BI Accession Number(s): [id number] cc: Bri Lynne DO EXAMINATION: MM SCREENING [...] in OV> 05/10/23 2212 DD/ 1613 TD/TT: Spot Cleaner: Bri Guera DO [facility] [place] PROCEDURES Edited Res ult - Final * THINPREP TIS PAP AND HPV mRNA E6/E7, CT/NG, TRICH (03/23/2022 11:15 AM EDT) Chlamydia trachomatis RNA, TMA, Urogenital NOT DETECTED NOT DETECTED [facility] Clinical Information: None given [facility] COMMENT SEE COMMENT [facility] Comment: The analytical performance characteristics of this assay, when used to test SurePath(TM) specimens have been determined by [facility]. The modifications have not been cleared or approved by the FDA. This assay has been validated pursuant to the CLIA regulations and is used for clinical purposes. For additional information, please refer to https://Knowledgestreem.Roozt.com/faq/RAX222 (This link is being provided for information/ educational purposes only.) COMMENT SEE COMMENT [facility] Comment: EXPLANATORY NOTE: The Pap is a screening test for cervical cancer. It is not a diagnostic test and is subject to false negative and false positive results. It is most reliable when a satisfactory sample, regularly obtained, is submitted with relevant clinical findings and history, and when the Pap result is evaluated along with historic and current clinical information. COMMENT: This Pap test has been evaluated with computer assisted technology. [facility] Track Dresser: SEE COMMENT [facility] Comment: CMG, CT(ASCP) CT screening location: [address] [address] HPV nRNA E6/E7 Not Detected Not Detected [facility] Comment: Methodology: Deputy Clerk Of Superior Court-Mediated Amplification This assay detects E6/E7 viral messenger RNA (mRNA) from 14 high-risk HPV types (16,18,31,33,35,39,45,51,52,56,58,59,66,68). Cervical sources are required for HPV testing. If a vaginal source from a patient who has had a total hysterectomy with removal of cervix was submitted, please contact the testing laboratory for alternative testing options. For additional information, please refer to http://education.Roozt.com/faq/THK335d8 (This link if provided for information/ educational purposes only.) Infection Shift in vaginal filiberto suggestive of bacterial vaginosis. [facility] Interpretation/Re sult: Negative for intraepithelial lesion or malignancy. [facility] LMP: NONE GIVEN [facility] Neisseria gonorrhoeae RNA, TMA, Urogenital NOT DETECTED NOT DETECTED [facility] Prev. BX: NONE [facility]IVEN [facility] Prev. PAP: NONE GIVEN [facility] Review Track Dresser: SEE COMMENT [facility] Comment: MSM, CT(ASCP) CT screening location: [place] [address] SOURCE: None given [facility] Statement Of Adequacy: SEE COMMENT [facility] Comment: Satisfactory for evaluation. Endocervical/transformation zone component absent. Partially obscuring inflammation Partially obscuring blood Trichomonas vaginalis, QL, TMA, PAP Vial NOT DETECTED NOT DETECTED [facility] Comment: The analytical performance characteristics of this assay have been determined by [facility]. The modifications have not been cleared or approved by the FDA. This assay has been validated pursuant to the CLIA regulations and is used for clinical purposes. For additional information, please refer to http://education.Baeta.[employer]/ faq/Trichomonastma (This link is being provided for information/ educational purposes only.) NO COLLECTION DATE RECEIVED. WE HAVE USED THE DATE THE SPECIMEN WAS RECEIVED BY THIS LABORATORY THE COLLECTION DATE. IF THIS IS INCORRECT, PLEASE CONTACT CLIENT SERVICES. PHONE NUMBER: 03/23/2022 11:1 5 AM EDT us Oxana Daniels NP LAB PATHOLOGY ORDERABLES Final Result [facility] [address] * HEPATITIS C AB W/REFL TO HCV RNA, QN, PCR (11/30/2021 10:10 AM EST) HEPATITIS C ANTIBODY NON-REACT JANE NON-REACT JANE [facility] INDEX 0.01 <1.00 [facility] Comment: HCV antibody was non-reactive. There is no laboratory evidence of HCV infection. In most cases, no further action is required. However, if recent HCV exposure is suspected, a test for HCV RNA (test code 63064) is suggested. For additional information please refer to http://education.Roozt.com/faq/HAR58l8 (This link is being provided for informational/ educational purposes only.) 11/30/2021 10:1 0 AM EST us Oxana Daniels NP HISTORICAL/NON ORDERABLE LABS F inal Result [facility] [address] from Last 3 Months or Most Recently Relevant to Health Maintenance Insurance [facility] OPTIONS (O D-SNP) [facility] * Guarantor: Genoveva Núñez Account Type Relation to Patient Date of Phone Billing Address Personal/Family Self [address] [place] Care Teams Protocol Officer Relationship Specialty Start Date End Date Digna Weber MD [address] [place] [id number] PCP - General Family Medicine 07/05/23
--- OUTSIDE RECORDS SUMMARY | 2025-06-14 16:14 | XMS_ITS | Encounter Summary ---
Author Organization [employer] Address [address] [place] [address] [address] [place] [address] Care Team Providers Care Ethnic Origins Teacher Name Role Phone Briseyda Broderick Primary Care Provider Sarah Briseyda Johnson Primary Care Provider Sarah Digna Zamudio MD Primary Care Provider [phone] Encounter Details Date Type Department Care Team (Late st Contact Info) Description 01/12/2023 Orders Only [facility] [address] [place] [address] Bri Turpin LPN Social History Tobacco Use [...] Description 12/13/2025 10:00 AM EDT Office Visit [facility] OPTOMETRY [address] [place] [address] Lizy De Anda, OD [address] [place] [address] documented as of this encounter Visit Diagnoses Not on filedocumented in this encounter Care Teams Ethnic Origins Teacher Relationship Specialty Start Date End Date Briseyda Broderick FNP PCP - General Family Medicine 05/20/22 03/09/23 Briseyda Broderick FNP PCP - General Family Medicine 03/21/23 07/04/23 Digna Weber MD [address] [place] [id number] PCP - General Family Medicine 07/05/23 documented as of this encounter
--- OUTSIDE RECORDS SUMMARY | 2025-06-14 16:14 | XMS_ITS | Encounter Summary ---
Author Organization [facility] Address [address] [place] [address] Care Team Providers Care Sueding Machine Operator Name Role Phone Community, Pcp Primary Care Provider Unavailabl e Reason for Visit * Reason Comments E-prescribe Rx Request Encounter Details Date Type Department Care Team Description 05/22/2023 Refill [facility] [address] [facility] [address] [place] [phone] Kelechi Abbott DPM E-prescribe Rx Request Social History Tobacco Use Types Packs/Day Years Used Date Smoking Tobacco: Never Smokeless Tobacco: Never Sex Assigned at Date Recorded Not on file COVID-19 Exposure Response Date Recorded In the last 10 days, have yo u been in contact with someone who was confirmed or suspected to have Coronavirus/COVID-19? No / Unsure 05/24/2023 10:40 AM EDT documented as of this encounter Plan of Treatment Not on file documented as of this encounter Visit Diagnoses Not on filedocumented in this encounter Care Teams Sueding Machine Operator Relationship Specialty Start Date End Date Community, Pcp PCP - General Internal Medicine 06/21/14 07/25/23 documented as of this encounter
--- OUTSIDE RECORDS SUMMARY | 2025-06-14 16:14 | XMS_ITS | Encounter Summary ---
Author Organization [employer] Address [address] [facility] [address] [place] [address] Care Team Providers Care Metal Bonder Name Role Phone Digna Weber MD Primary Care Provider [phone] Reason for Visit * Reason Comments Med Refill Encounter Details Date Type Department Care Team ([facility] st Contact Info) Description 01/25/2025 Refill [facility] MED[facility] [address] [place], [place] [phone] Digna Weber MD [address] [place], [place] [phone] Bilateral wrist pain Social History Tobacco Use Types Packs/Day Years [...] Description 12/13/2025 10:00 AM EDT Office Visit [facility] OPTOMETRY [address] [place] [address] Lizy De Anda, OD [address] [place] [address] documented as of this encounter Visit Diagnoses Diagnosis Bilateral wrist pain documented in this encounter Care Teams Metal Bonder Relationship Specialty Start Date End Date Digna Weber MD [address] [place] [address] PCP - General Family Medicine 07/05/23 documented as of this encounter
--- OUTSIDE RECORDS SUMMARY | 2025-06-14 16:14 | XMS_ITS | Encounter Summary ---
Author Organization [employer] Address [address] [place] [address] [address] [place] [address] Care Team Providers Care Centrifugal Screen Tender Name Role Phone Briseyda Broderick Primary Care Provider Saarh Digna Zamudio MD Primary Care Provider [phone] Encounter Details Date Type Department Care Team (Late st Contact Info) Description 04/19/2023 Abstract [facility] MEDICINE [address] [place] [address] Briseyda Broderick FNP Social History Tobacco Use Types Packs/Day Years [...] Description 12/13/2025 10:00 AM EDT Office Visit [facility] OPTOMETRY [address] [place] [address] AdilsonLizy bennett, OD [address] [place], [place] [phone] documented as of this encounter Visit Diagnoses Not on filedocumented in this encounter Care Teams Centrifugal Screen Tender Relationship Specialty Start Date End Date Briseyda Broderick FNP PCP - General Family Medicine 03/21/23 07/04/23 Digna Weber MD [address] [place] [address] PCP - General Family Medicine 07/05/23 documented as of this encounter
== END 2025-06-14 16:11 | disposition home or self-care (01) ==
LOC: HO.LNP 16:10
PROVIDERS: Visit Provider General Practice
DX: Z12.4 Encounter for screening for malignant neoplasm of cervix (principal); Z11.51 Encounter for screening for human papillomavirus (HPV)
CPT/HCPCS: 87626; 88175

== ENCOUNTER 2025-08-13 11:26 | Outpatient (REF) | payer OTHER, SELFPAY | END 2025-08-13 11:27 | disposition home or self-care (01) | LOC: HO.MAMMO 11:26 | PROVIDERS: PCP General Practice; Visit Provider General Practice | DX: Z12.31 Encounter for screening mammogram for malignant neoplasm of breast (principal) | CPT/HCPCS: 77063; 77067 ==

== ENCOUNTER → 2025-08-13 11:28 | Outpatient (BNV) | payer OTHER, SELFPAY | PROVIDERS: PCP General Practice; Visit Provider Internal Medicine | DX: Z12.31 Encounter for screening mammogram for malignant neoplasm of breast (principal) | CPT/HCPCS: 77063; 77067 ==